=== PATIENT | male | born 1930 | race American Indian/Alaskan Native ===

== ENCOUNTER 2016-03-03 15:39 | Inpatient (IN) | payer MEDICARE ==
--- NOTE | 2016-03-03 16:42 | Emergency Department Report ---
Chief Complaint: Dyspnea/Respdistress Stated Complaint: SOB/DIZZINESS Time Seen by Provider: 03/03/16 16:38 - HPI History of Present Illness: Patient here reports shortness of breath and dizziness. He is here with his daughter reports patient was recently started on home O2 for COPD and congestive heart failure. Patient also has a history of coronary artery disease with angioplasty and stent placement. 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 Patient has a history of CVA in the past. Daughter reported that his heart is prompted a 20% . Patient complaining of increased short of breath and generalized weakness. Reports chest pain on the left side without radiation that feels similar in its 9 out of 10. Cord Maker is Dr. Lyn. Report that patient potassium level was low on 2 occasion and she is also low back to impact retail service merchandiser tomorrow for repeat potassium. Patient is on potassium. - ROS Review of Systems: All systems are negative unless stated in HPI above. - Exam Vital Signs: Vital Signs 03/03/16 16:03 Temperature 97.9 F Pulse Rate 66 Respiratory 28 H Rate Blood Pressure 149/67 O2 Sat by Pulse 95 Oximetry Physical Exam: General: This is a 85-year-old male well-nourished well-developed and nontoxic in appearance. CV: S1, S2. Regular rate and rhythm. Lungs: Diminished air entry to lung [place]. Patient on O2 at 2 L. mild Increased work of breathing. Patient is tachypneic at 28 Extremity: Trace swelling to legs and feet. MSE screening note: Focused history and physical exam performed. Due to findings the following was ordered:see [facility] ED Medical Decision Making - Medical Decision Making Medical decision making: Patient seen by provider in triage area. Appropriate protocol activated and patient to main ED to be seen by physician. ED Disposition for MSE Condition: Stable
--- NOTE | 2016-03-03 17:12 | XRay Report ---
FINAL REPORT PROCEDURE: XR CHEST ROUTINE 2V TECHNIQUE: Two views of the chest are obtained HISTORY: cp sob COMPARISON: Chest x-ray dated December 23, 2014 FINDINGS: Likely changes of COPD are present. Probable CHF is seen, similar to prior study. CP angles remain sharp but there may be a small amount of fluid in the pulmonary fissures. No suggestion of pneumonia is seen. IMPRESSION: Likely changes of CHF and COPD are present.
[2016-03-03 17:31] LABS: Basophils % (Auto) 0.6 % (0.0-1.8); Eosinophils % (Auto) 2.2 % (0.0-4.3); Hematocrit 38.4 % (35.5-45.6); Hemoglobin 12.6 gm/dl (11.8-15.2); Mean Corpuscular HGB Conc 33 % (32-34); Mean Corpuscular Hemoglobin 31 pg (28-32); Mean Corpuscular Volume 96 fl (84-94); Platelet Count 200 K/mm3 (140-440); Red Blood Count 4.01 M/mm3 (3.65-5.03); Red Cell Distribution Width 15.2 % (13.2-15.2); White Blood Count 5.5 K/mm3 (4.5-11.0)
[2016-03-03 17:39] LABS: INR 1.16 (0.87-1.13)
[2016-03-03 17:40] LABS: Partial Thromboplastin Time 31.9 Sec. (24.2-36.6)
[2016-03-03 17:56] LABS: Blood Urea Nitrogen 13 mg/dL (9-20); Calcium 8.4 mg/dL (8.4-10.2); Carbon Dioxide 23 mmol/L (22-30); Chloride 102.8 mmol/L (98-107); Creatine Kinase MB 1.3 ng/mL (0.0-4.0); Glucose 120 mg/dL (75-100); Potassium 3.4 mmol/L (3.6-5.0); Sodium 139 mmol/L (137-145)
[2016-03-03 18:00] LABS: Magnesium 1.8 mg/dL (1.7-2.3)
[2016-03-03 18:13] LABS: Anion Gap 17 mmol/L
--- NOTE | 2016-03-03 22:52 | Admit Criteria Form ---
Admission Criteria Documentation: HEART FAILURE: COMMON COMPLICATIONS Clinical Indications for Inpatient Care (Place 'X' for any and all applicable criteria): Ongoing inpatient care may be indicated for heart failure with ANY ONE of the following (1)(2)(3)(4)(5): [ ]I. Ongoing need for care for primary condition requiring frequent therapy adjustments because of changes in cardiac function (eg, drug dosage changes for drugs that are renally metabolized) [ ]II. New-onset heart failure [ ]III. Heart failure with decreased urine output not responsive to attempts to optimize volume status [ ]IV. Acute cardiac ischemia causing or associated with failure [ X]V. Complications of heart failure, including ANY ONE of the following: [ ]a) Pericardial effusion [ ]b) Symptomatic pleural effusion [ ]c) O2 saturation <90% or PO2 < 60 mm Hg (8.0 kPa) on room air or require baseline supplemental O2 [ ]d) Tachypnea [ X]e) Dyspnea [ ]f) Syncope [ ]g) Change in mental status [ ]h) Acute renal insufficiency that is severe (reduction of more than 50% in estimated glomerular filtration rate from baseline) or progressive reduction of more than 25% in estimated glomerular filtration rate from baseline, with creatinine continuing to rise) [ ]i) Hemodynamic instability [ ]j) Anasarca [ ]k) Clinically significant metabolic abnormalities due to heart failure (eg, new-onset metabolic acidosis) Extended stay beyond goal length of stay for primary condition may be needed until ALL of the following are present(1)(3): [ ]a) Stable and effective diuretic regimen established (or patient on stable dialysis regimen if in chronic renal failure) [ ]b) Breathing comfortably at rest [ ]c) Saturation of arterial oxygen greater than 90% or at acceptable baseline [ ]d) Pulmonary edema absent or improved [ ]e) Hemodynamic stability [ ]f) Volume status acceptable on oral medication [ ]g) Peripheral or sacral edema absent or improved [ ]h) Renal function stable and manageable at a lower level of care [ ]i) Complications (eg, pleural effusion) resolved or manageable at a lower level of care [ ]j) Patient or caregiver has received written discharge instructions or educational material addressing activity level, diet, discharge medications, follow-up appointment, weight monitoring, and what to do if symptoms worsen The original [facility] content created by [employer] has been revised. The portions of the content which have been revised are identified through the use of italic text or in bold, and [facility] has neither reviewed nor approved the modified material.All other unmodified content is copyright [facility]. Please see references footnoted in the original [facility] edition 2016 Admission Criteria Met: Yes
--- NOTE | 2016-03-03 23:05 | Emergency Department Report ---
ED Shortness of Breath HPI - General Chief Complaint: Dyspnea/Respdistress Stated Complaint: SOB/DIZZINESS Time Seen by Provider: 03/03/16 16:38 Source: patient, family Mode of arrival: Wheelchair Limitations: Physical Limitation - History of Present Illness Initial Comments: 85-year-old male with a past medical history COPD with oxygen dependence, CHF, CAD with for stent placement, hypertension, and other than a cholesterol, and CVA with residual right-sided weakness presents to the hospital complains of numbness of breath and lightheadedness for the past 2-3 weeks. Symptoms worse with exertion. Occasional shortness of breath while sleeping. Denies cough, fever, or worsening edema. She uses home oxygen and recently required continuous oxygen treatment due to shortness of breath. Left-sided chest soreness reported that is constant for 2-3 weeks. Rated 9/10 in intensity. Worse with palpation. No pain with deep inspiration. No nausea, vomiting, or diaphoresis reported. Patient had outpatient stress test performed February 20 he does not know the results. Patient also receiving potassium supplementation for hypokalemia. Application Support Intern: Dr. Lyn, PND, Dr. 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 Patient is currently in home hospice - Related Data Home Medications Medication Instructions Recorded Confirmed Last Taken Aspirin [Adult Low Dose Aspirin EC] 81 mg PO DAILY 10/18/15 03/03/16 1 Day Ago 81 Atorvastatin Calcium [Lipitor] 20 mg PO QHS 10/18/15 03/03/16 1 Day Ago 20 Clopidogrel Bisulfate [Plavix] 75 mg PO DAILY 10/18/15 03/03/16 1 Day Ago 75 Furosemide [Lasix TAB] 40 mg PO QDAY 10/18/15 03/03/16 1 Day Ago 40 Hydralazine HCl [Apresoline TAB] 50 mg PO TID 10/18/15 03/03/16 1 Day Ago 50 ISOSORBIDE MONOnitrate [Imdur ER] 30 mg PO DAILY 10/18/15 03/03/16 1 Day Ago 30 Metoprolol [Lopressor TAB] 50 mg PO BID 10/18/15 03/03/16 1 Day Ago 50 Sacubitril/Valsartan [Entresto 97 1 each PO BID 10/18/15 03/03/16 1 Day Ago mg-103 mg Tablet] 1 Spironolactone [Aldactone] 25 mg PO QDAY 10/18/15 03/03/16 1 Day Ago 25 Tamsulosin [Flomax] 0.4 mg PO QHS 10/18/15 03/03/16 1 Day Ago 0.4 Allergies Allergy/AdvReac Type Severity Reaction Status Date / Time No Known Allergies Allergy Verified 12/23/14 18:25 ED Review of Systems ROS: Stated complaint: SOB/DIZZINESS Other details as noted in HPI Comment: All other systems reviewed and negative Other: Constitutional: No fevers chills Eyes: No eye pain visual changes ENT: No ear pain or throat pain Neck: Denies pain Respiratory: Denies cough wheezing Cardiovascular: Denies palpitations, syncope GI: Denies abdominal pain, nausea, vomiting, diarrhea : Denies dysuria Musculoskeletal: Trace lower extremity edema Skin: Denies rash, lesions, erythema Neurologic: Denies headache, numbness, weakness Psychiatric: Denies suicidal ideation, hallucinations ED Past Medical Hx - Past Medical History Previous Medical History?: Yes Hx Hypertension: Yes Hx CVA: Yes Hx Congestive Heart Failure: Yes Hx Renal Disease: Yes Hx Arthritis: Yes Hx COPD: Yes Additional medical history: CAD. HIGH CHOLESTEROL. GLAUCOMA - Surgical History Past Surgical History?: Yes Hx Coronary Stent: Yes (X 4) Additional Surgical History: BILATERAL CATARACT SURGERY - Social History Smoking Status: Former Smoker Substance Use Type: Prescribed, Other - Medications Home Medications: Home Medications Medication Instructions Recorded Confirmed Last Taken Type Aspirin [Adult Low Dose Aspirin EC] 81 mg PO DAILY 10/18/15 03/03/16 1 Day Ago History 81 Atorvastatin Calcium [Lipitor] 20 mg PO QHS 10/18/15 03/03/16 1 Day Ago History 20 Clopidogrel Bisulfate [Plavix] 75 mg PO DAILY 10/18/15 03/03/16 1 Day Ago History 75 Furosemide [Lasix TAB] 40 mg PO QDAY 10/18/15 03/03/16 1 Day Ago History 40 Hydralazine HCl [Apresoline TAB] 50 mg PO TID 10/18/15 03/03/16 1 Day Ago History 50 ISOSORBIDE MONOnitrate [Imdur ER] 30 mg PO DAILY 10/18/15 03/03/16 1 Day Ago History 30 Metoprolol [Lopressor TAB] 50 mg PO BID 10/18/15 03/03/16 1 Day Ago History 50 Sacubitril/Valsartan [Entresto 97 1 each PO BID 10/18/15 03/03/16 1 Day Ago History mg-103 mg Tablet] 1 Spironolactone [Aldactone] 25 mg PO QDAY 10/18/15 03/03/16 1 Day Ago History 25 Tamsulosin [Flomax] 0.4 mg PO QHS 10/18/15 03/03/16 1 Day Ago History 0.4 ED Physical Exam - General Limitations: Physical Limitation - Other Other exam information: General: No limitations, patient is alert in no acute distress Head exam: Atraumatic, normocephalic Eyes exam: Normal appearance, pupils equal reactive to light, extraocular movements intact ENT: Moist mucous membrane, normal oropharynx Neck exam: Normal inspection, full range of motion, no meningismus nontender Respiratory exam: Clear to auscultation bilateral, no wheezes, rales, crackles Cardiovascular: Normal rate and rhythm, normal heart sounds, reproducible left chest wall tenderness Abdomen: Soft, nondistended, and nontender, with normal bowel sounds, no rebound, or guarding Extremity: Full range of motion normal inspection no deformity, trace pedal edema Back: Normal Inspection, full range of motion, no tenderness Neurologic: Alert, oriented x3, cranial nerves intact, 4/5 right sided strength compared to the left 5/5, sensation grossly intact Psychiatric: normal affect, normal mood Skin: Warm, dry, intact ED Course Vital Signs 03/03/16 03/03/16 03/03/16 16:03 22:47 22:48 Temperature 97.9 F Pulse Rate 66 65 Respiratory 28 H 21 21 Rate Blood Pressure 149/67 Blood Pressure 206/98 [Left] O2 Sat by Pulse 95 98 98 Oximetry 03/04/16 03/04/16 03/04/16 00:15 01:25 02:38 Temperature Pulse Rate 60 62 61 Respiratory 18 16 Rate Blood Pressure 182/81 Blood Pressure 192/87 173/86 [Left] O2 Sat by Pulse 98 99 Oximetry 03/04/16 03/04/16 04:00 06:38 Temperature Pulse Rate 61 60 Respiratory 18 20 Rate Blood Pressure Blood Pressure 174/75 168/87 [Left] O2 Sat by Pulse 99 97 Oximetry ED Medical Decision Making - Lab Data Result diagrams: 03/03/16 17:08 03/04/16 00:55 Lab Results 03/03/16 03/03/16 03/03/16 Range/Units 17:08 17:08 17:08 WBC 5.5 (4.5-11.0) K/mm3 RBC 4.01 (3.65-5.03) M/mm3 Hgb 12.6 (11.8-15.2) gm/dl Hct 38.4 (35.5-45.6) % MCV 96 H (84-94) fl MCH 31 (28-32) pg MCHC 33 (32-34) % RDW 15.2 (13.2-15.2) % Plt Count 200 (140-440) K/mm3 Lymph % (Auto) 30.0 (13.4-35.0) % Leslie % (Auto) 10.1 H (0.0-7.3) % Eos % (Auto) 2.2 (0.0-4.3) % Baso % (Auto) 0.6 (0.0-1.8) % Lymph # 1.7 (1.2-5.4) K/mm3 Leslie # 0.6 (0.0-0.8) K/mm3 Eos # 0.1 (0.0-0.4) K/mm3 Baso # 0.0 (0.0-0.1) K/mm3 Seg Neutrophils % 57.1 (40.0-70.0) % Seg Neutrophils # 3.2 (1.8-7.7) K/mm3 PT 14.7 (12.2-14.9) Sec. INR 1.16 H (0.87-1.13) APTT 31.9 (24.2-36.6) Sec. Sodium 139 (137-145) mmol/L Potassium 3.4 L (3.6-5.0) mmol/L Chloride 102.8 (98-107) mmol/L Carbon Dioxide 23 (22-30) mmol/L Anion Gap 17 mmol/L BUN 13 (9-20) mg/dL Creatinine 1.0 (0.8-1.5) mg/dL Estimated GFR > 60 ml/min BUN/Creatinine Ratio 13.00 % Glucose 120 H (75-100) mg/dL Calcium 8.4 (8.4-10.2) mg/dL Magnesium (1.7-2.3) mg/dL Total Creatine Kinase (55-170) units/L CK-MB (CK-2) (0.0-4.0) ng/mL CK-MB (CK-2) Rel Index (0-4) Troponin T < 0.010 (0.00-0.029) ng/mL 03/03/16 03/03/16 Range/Units 17:08 19:23 WBC (4.5-11.0) K/mm3 RBC (3.65-5.03) M/mm3 Hgb (11.8-15.2) gm/dl Hct (35.5-45.6) % MCV (84-94) fl MCH (28-32) pg MCHC (32-34) % RDW (13.2-15.2) % Plt Count (140-440) K/mm3 Lymph % (Auto) (13.4-35.0) % Leslie % (Auto) (0.0-7.3) % Eos % (Auto) (0.0-4.3) % Baso % (Auto) (0.0-1.8) % Lymph # (1.2-5.4) K/mm3 Leslie # (0.0-0.8) K/mm3 Eos # (0.0-0.4) K/mm3 Baso # (0.0-0.1) K/mm3 Seg Neutrophils % (40.0-70.0) % Seg Neutrophils # (1.8-7.7) K/mm3 PT (12.2-14.9) Sec. INR (0.87-1.13) APTT (24.2-36.6) Sec. Sodium (137-145) mmol/L Potassium (3.6-5.0) mmol/L Chloride (98-107) mmol/L Carbon Dioxide (22-30) mmol/L Anion Gap mmol/L BUN (9-20) mg/dL Creatinine (0.8-1.5) mg/dL Estimated GFR ml/min BUN/Creatinine Ratio % Glucose (75-100) mg/dL Calcium (8.4-10.2) mg/dL Magnesium 1.8 (1.7-2.3) mg/dL Total Creatine Kinase 97 (55-170) units/L CK-MB (CK-2) 1.3 (0.0-4.0) ng/mL CK-MB (CK-2) Rel Index 1.3 (0-4) Troponin T < 0.010 (0.00-0.029) ng/mL - EKG Data -: EKG Interpreted by Me (sinus rhythm first-degree AV block lateral T wave inversion) - EKG Data When compared to previous EKG there are: no significant change (new first degree block compared to 10/19/2015) - Radiology Data Radiology results: report reviewed (chest x-ray: Likely changes of CHF and COPD) - Medical Decision Making Plan to admit patient to hospital for further evaluation and workup due to dyspnea symptoms and significant cardiac history. No STEMI at this time - Differential Diagnosis COPD, CHF, IA, unstable angina, it was chest Critical Care Time: No Critical care attestation.: If time is entered above; I have spent that time in minutes in the direct care of this critically ill patient, excluding procedure time. ED Disposition Clinical Impression: Shortness of breath, Uncontrolled hypertension, Hypokalemia, CVA, old, hemiparesis COPD (chronic obstructive pulmonary disease) Qualifiers: COPD type: unspecified COPD Qualified Code(s): J44.9 - Chronic obstructive pulmonary disease, unspecified Hypertension Qualifiers: Hypertension type: essential hypertension Qualified Code(s): I10 - Essential ( primary) hypertension CHF (congestive heart failure) Qualifiers: Congestive heart failure type: unspecified congestive heart failure type Congestive heart failure chronicity: chronic Qualified Code(s): I50.9 - Heart failure, unspecified Chest pain Qualifiers: Chest pain type: unspecified Qualified Code(s): R07.9 - Chest pain, unspecified Disposition: OP ADMITTED IP TO THIS HOSP Is pt being admited?: Yes Condition: Stable Time of Disposition: 23:10 ([place])
[2016-03-03] MEDS ORDERED: K-DUR PO ONE (23:08)
[2016-03-04] MEDS ORDERED: NON-FORMULARY (Sacubitril/Valsartan [Entresto 97 Mg-103 Mg Tablet] 1 EACH) PO SCH (00:45)
[2016-03-04] MEDS ORDERED: LOPRESSOR ONE (01:21)
[2016-03-04] MEDS: LOPRESSOR PO SCH ×3 (01:25→22:30)
[2016-03-04 01:30] LABS: Creatine Kinase MB 1.4 ng/mL (0.0-4.0)
[2016-03-04 01:31] LABS: Alanine Aminotransferase 8 units/L (7-56); Albumin 3.6 g/dL (3.9-5); Albumin/Globulin Ratio 1.1 %; Alkaline Phosphatase 61 units/L (35-129); BUN/Creatinine Ratio 13.33; Bilirubin,Total 0.7 mg/dL (0.1-1.2); Blood Urea Nitrogen 12 mg/dL (9-20); Calcium 8.4 mg/dL (8.4-10.2); Carbon Dioxide 24 mmol/L (22-30); Chloride 100.8 mmol/L (98-107); Creatine Kinase 91 units/L (55-170); Glucose 99 mg/dL (75-100); Potassium 3.5 mmol/L (3.6-5.0); Sodium 139 mmol/L (137-145); Total Protein 6.9 g/dL (6.3-8.2)
--- NOTE | 2016-03-04 01:32 | History and Physical Report ---
History of Present Illness Date of examination: 03/04/16 Date of admission: 03/04/16 00:34 Chief complaint: Shortness of breath History of present illness: Patient is a 85-year-old male with a history of COPD, depression, dementia, with the resident also a custodial facility. Started complaining of left- sided chest pain. CT a history of the chest was done. This was remarkable for a 50%. Pneumothorax. Therefore brought emergency department. Emergency room doctor placed a chest tube. Post insertion xray was satisfactory. Past History Past Medical History: acute [place], heart failure, hyperthyroidism, hyperlipidemia Social history: denies: smoking, alcohol abuse, IV drug use Family history: no significant family history Medications and Allergies Allergies Allergy/AdvReac Type Severity Reaction Status Date / Time No Known Allergies Allergy Verified 12/23/14 18:25 Home Medications Medication Instructions Recorded Confirmed Last Taken Type Aspirin [Adult Low Dose Aspirin EC] 81 mg PO DAILY 10/18/15 03/03/16 1 Day Ago History 81 Atorvastatin Calcium [Lipitor] 20 mg PO QHS 10/18/15 03/03/16 1 Day Ago History 20 Clopidogrel Bisulfate [Plavix] 75 mg PO DAILY 10/18/15 03/03/16 1 Day Ago History 75 Furosemide [Lasix TAB] 40 mg PO QDAY 10/18/15 03/03/16 1 Day Ago History 40 Hydralazine HCl [Apresoline TAB] 50 mg PO TID 10/18/15 03/03/16 1 Day Ago History 50 ISOSORBIDE MONOnitrate [Imdur ER] 30 mg PO DAILY 10/18/15 03/03/16 1 Day Ago History 30 Metoprolol [Lopressor TAB] 50 mg PO BID 10/18/15 03/03/16 1 Day Ago History 50 Sacubitril/Valsartan [Entresto 97 1 each PO BID 10/18/15 03/03/16 1 Day Ago History mg-103 mg Tablet] 1 Spironolactone [Aldactone] 25 mg PO QDAY 10/18/15 03/03/16 1 Day Ago History 25 Tamsulosin [Flomax] 0.4 mg PO QHS 10/18/15 03/03/16 1 Day Ago History 0.4 Active Meds: Active Medications Aspirin (Halfprin Ec) 81 mg PO DAILY ROBI Atorvastatin Calcium (Lipitor) 20 mg PO QHS [facility] [place] Clopidogrel Bisulfate (Plavix) 75 mg PO DAILY [facility] Enoxaparin Sodium (Lovenox) 40 mg SUB-Q QDAY [facility] [place] Furosemide (Lasix) 20 mg IV QDAY [facility] [place] Hydralazine HCl (Apresoline) 50 mg PO TID [facility] Isosorbide Mononitrate (Imdur) 30 mg PO DAILY [facility] Metoprolol Tartrate (Lopressor) 50 mg PO BID [facility] Last Admin: 03/04/16 01:25 Dose: 50 mg Miscellaneous Medication (Sacubitril/Valsartan [Entresto 97 Mg-103 Mg Tablet]) 1 each PO BID [facility] [place] Spironolactone (Aldactone) 25 mg PO QDAY [facility] [place] Tamsulosin HCl (Flomax) 0.4 mg PO QHS [facility] Review of Systems Constitutional: no weight loss, no weight gain Ears, nose, mouth and throat: decreased hearing, no ear pain, no ear discharge, no tinnitis Cardiovascular: chest pain (right-sided) Respiratory: cough, cough with sputum, excessive sputum, hemoptysis Gastrointestinal: abdominal pain, nausea, vomiting, diarrhea Genitourinary Male: dysuria, no hematuria, no discharge Exam - Constitutional Vitals: Temp Pulse Resp BP Pulse Ox 97.9 F 62 18 182/81 98 03/03/16 16:03 03/04/16 01:25 03/04/16 00:15 03/04/16 01:25 03/04/16 00:15 General appearance: Present: mild distress - EENT Eyes: Present: PERRL - Neck Neck: Present: supple, enlarged thyroid - Respiratory Respiratory: bilateral: diminished - Cardiovascular Rhythm: regular Heart Sounds: Present: S1 & S2 - Extremities Extremities: no ischemia, No edema - Abdominal General gastrointestinal: Present: soft, non-tender, non-distended - Integumentary Integumentary: Present: clear, warm, dry, jaundice - Musculoskeletal Musculoskeletal: strength equal bilaterally - Psychiatric Psychiatric: appropriate mood/affect - Neurologic Neurologic: focal deficits Results - Labs CBC & Chem 7: 03/03/16 17:08 03/05/16 00:58 Assessment and Plan - Patient Problems (1) COPD (chronic obstructive pulmonary disease) Diagnosis Date: 03/04/16 Current Visit: Yes Status: Chronic Qualifiers: COPD type: unspecified COPD Qualified Code(s): J44.9 - Chronic obstructive pulmonary disease, unspecified Plan to address problem: Continue albuterol and Atrovent. IV Solu-Medrol. IV Levaquin. (2) Hypokalemia Diagnosis Date: 03/04/16 Current Visit: Yes Status: Acute Plan to address problem: We'll supplement potassium (3) Shortness of breath Diagnosis Date: 03/04/16 Current Visit: Yes Status: Acute Plan to address problem: Continue with bronchodilators, oxygen, IV Solu-Medrol (4) Hypertension Diagnosis Date: 03/04/16 Current Visit: Yes Status: Chronic Qualifiers: Hypertension type: essential hypertension Qualified Code(s): I10 - Essential (primary) hypertension Plan to address problem: Optimize control
[2016-03-04 01:36] LABS: Anion Gap 18 mmol/L
[2016-03-04] MEDS ORDERED: NON-FORMULARY (Hydralazine Hcl [Apresoline Tab] 50 MG) PO SCH (08:00)
--- NOTE | 2016-03-04 09:24 | Consultation ---
History of Present Illness Consult date: 03/04/16 Requesting physician: KELVIN SOLORZANO Consult reason: congestive heart failure History of present illness: The patient is an 85 year old male with a history of heart failure, CAD s/p PCI , COPD on home O2, CVA who presented with complaints of worsening shortness of breath and dyspnea on exertion over the past several weeks. No chest pain. Troponin negative x 2. Echo done 04/2014 showed EF 35% but MUGA scan done 2015 showed EF 49%. Stress test done 12/2014 reveled a medium sized inferior infarct with mild heydi-infarct ischemia. Past History Past Medical History: CAD, COPD, heart failure, hyperthyroidism, hypertension, hyperlipidemia, stroke, other (glaucoma) Past Surgical History: cataract removal, PTCA Social history: denies: smoking, alcohol abuse, IV drug use Family history: no significant family history Medications and Allergies Allergies Allergy/AdvReac Type Severity Reaction Status Date / Time No Known Allergies Allergy Verified 12/23/14 18:25 Home Medications Medication Instructions Recorded Confirmed Last Taken Type Aspirin [Adult Low Dose Aspirin EC] 81 mg PO DAILY 10/18/15 03/03/16 1 Day Ago History 81 Atorvastatin Calcium [Lipitor] 20 mg PO QHS 10/18/15 03/03/16 1 Day Ago History 20 Clopidogrel Bisulfate [Plavix] 75 mg PO DAILY 10/18/15 03/03/16 1 Day Ago History 75 Furosemide [Lasix TAB] 40 mg PO QDAY 10/18/15 03/03/16 1 Day Ago History 40 Hydralazine HCl [Apresoline TAB] 50 mg PO TID 10/18/15 03/03/16 1 Day Ago History 50 ISOSORBIDE MONOnitrate [Imdur ER] 30 mg PO DAILY 10/18/15 03/03/16 1 Day Ago History 30 Metoprolol [Lopressor TAB] 50 mg PO BID 10/18/15 03/03/16 1 Day Ago History 50 Sacubitril/Valsartan [Entresto 97 1 each PO BID 10/18/15 03/03/16 1 Day Ago History mg-103 mg Tablet] 1 Spironolactone [Aldactone] 25 mg PO QDAY 10/18/15 03/03/16 1 Day Ago History 25 Tamsulosin [Flomax] 0.4 mg PO QHS 10/18/15 03/03/16 1 Day Ago History 0.4 Active Meds: Active Medications Aspirin (Halfprin Ec) 81 mg PO DAILY [facility] Atorvastatin Calcium (Lipitor) 20 mg PO QHS [facility] Clopidogrel Bisulfate (Plavix) 75 mg PO DAILY [facility] Enoxaparin Sodium (Lovenox) 40 mg SUB-Q QDAY [facility] Furosemide (Lasix) 20 mg IV QDAY [facility] Hydralazine HCl (Apresoline) 50 mg PO TID [facility] Isosorbide Mononitrate (Imdur) 30 mg PO DAILY [facility] Metoprolol Tartrate (Lopressor) 50 mg PO BID [facility] Last Admin: 03/04/16 01:25 Dose: 50 mg Miscellaneous Medication (Sacubitril/Valsartan [Entresto 97 Mg-103 Mg Tablet]) 1 each PO BID [facility] Spironolactone (Aldactone) 25 mg PO QDAY [facility] Tamsulosin HCl (Flomax) 0.4 mg PO QHS [facility] Review of Systems Constitutional: no fever, no chills Ears, nose, mouth and throat: no nasal congestion, no nasal discharge, no sinus pressure Cardiovascular: shortness of breath, dyspnea on exertion, no chest pain Respiratory: shortness of breath, dyspnea on exertion Gastrointestinal: no abdominal pain, no nausea, no vomiting, no diarrhea Genitourinary Male: no dysuria, no hematuria Musculoskeletal: no neck stiffness, no neck pain, no myalgias Integumentary: no rash, no pruritis Neurological: no parathesias, no numbness, no tingling, no headaches Endocrine: no cold intolerance, no heat intolerance Hematologic/Lymphatic: no easy bruising, no easy bleeding Allergic/Immunologic: no urticaria, no wheezing Physical Examination Vital Signs Temp Pulse Resp BP Pulse Ox 97.9 F 66 28 H 149/67 95 03/03/16 16:03 03/03/16 16:03 03/03/16 16:03 03/03/16 16:03 03/03/16 16:03 General appearance: no acute distress HEENT: Positive: Normocephaly, Mucus Membranes Moist Neck: Positive: neck supple, trachea midline Cardiac: Positive: Reg Rate and Rhythm, S1/S2 Lungs: Positive: clear to auscultation Neuro: Positive: Other (right hemiparesis) Abdomen: Positive: Soft, Active Bowel Sounds. Negative: Tender Skin: Positive: Clear. Negative: Rash Extremities: Present: normal. Absent: edema Results 03/03/16 17:08 03/04/16 00:55 Cardiac Enzymes 03/04/16 Range/Units 00:55 AST 14 (5-40) units/L CK-MB (CK-2) 1.4 (0.0-4.0) ng/mL Comprehensive Metabolic Panel 03/04/16 Range/Units 00:55 Sodium 139 (137-145) mmol/L Potassium 3.5 L (3.6-5.0) mmol/L Chloride 100.8 (98-107) mmol/L Carbon Dioxide 24 (22-30) mmol/L BUN 12 (9-20) mg/dL Creatinine 0.9 (0.8-1.5) mg/dL Glucose 99 (75-100) mg/dL Calcium 8.4 (8.4-10.2) mg/dL AST 14 (5-40) units/L ALT 8 (7-56) units/L Alkaline Phosphatase 61 (35-129) units/L Total Protein 6.9 (6.3-8.2) g/dL Albumin 3.6 L (3.9-5) g/dL - Imaging and Cardiology Echo: pending EKG: image reviewed EKG interpretations - Telemetry EKG Rhythm: Sinus Rhythm - EKG Sinus rhythms and dysrhythmias: sinus rhythm AV and intraventricular conduction: 1 AV block Repolarization changes or abnormalities: ST or T wave suggestive of ischemia Assessment and Plan Acute on chronic diastolic heart failure MUGA scan 01/2016: EF 49% Echo 04/2014: EF 35%, will repeat continue lasix, aldactone, metoprolol, valsartan, Imdur, hydralazine Accelerated hypertension optimize anti-hypertensive regimen CAD s/p PCI of RCA and LCX (04/2014) continue ASA, Plavix, statin COPD on O2 Hyperlipidemia Hx. of CVA Agree with current regimen. Await repeat echo findings. The patient has been seen in conjunction with Dr. Meyers who agrees with the assessment and plan of care. Thank you Dr. Solorzano for allowing us to participate in the care of this patient.
[2016-03-04] MEDS ORDERED: IMDUR PO SCH (10:00)
[2016-03-04] MEDS: DIOVAN PO SCH (10:26)
[2016-03-04] MEDS: ALDACTONE PO SCH (10:26)
[2016-03-04] MEDS: PLAVIX PO SCH (10:26)
[2016-03-04] MEDS: HALFPRIN EC PO SCH (10:26)
[2016-03-04] MEDS: LASIX IV SCH (10:27)
[2016-03-04] MEDS: LOVENOX SUB-Q SCH (10:27)
[2016-03-04] MEDS: APRESOLINE PO SCH ×3 (10:31→22:30)
[2016-03-04 12:13] LABS: Creatine Kinase MB 1.4 ng/mL (0.0-4.0)
[2016-03-04 14:36] LABS: Creatine Kinase MB 1.5 ng/mL (0.0-4.0)
[2016-03-04 22:20] LABS: Creatine Kinase MB 1.3 ng/mL (0.0-4.0)
[2016-03-04] MEDS: FLOMAX PO SCH (22:30)
--- NOTE | 2016-03-04 23:44 | Progress Note ---
Assessment and Plan - Patient Problems (1) COPD (chronic obstructive pulmonary disease) Diagnosis Date: 03/04/16 Current Visit: Yes Status: Chronic Qualifiers: COPD type: unspecified COPD Qualified Code(s): J44.9 - Chronic obstructive pulmonary disease, unspecified Plan to address problem: Continue albuterol and Atrovent. IV Solu-Medrol. IV Levaquin. (2) Hypokalemia Diagnosis Date: 03/04/16 Current Visit: Yes Status: Acute Plan to address problem: Supplement potassium level. (3) Shortness of breath Diagnosis Date: 03/04/16 Current Visit: Yes Status: Acute Plan to address problem: Continue with bronchodilators, oxygen, IV Solu-Medrol Secondary to terminal COPD (4) Hypertension Diagnosis Date: 03/04/16 Current Visit: Yes Status: Chronic Qualifiers: Hypertension type: essential hypertension Qualified Code(s): I10 - Essential (primary) hypertension Plan to address problem: Blood pressure optimized Further optimize blood pressure control with IV hydralazine. Subjective Date of service: 03/04/16 Principal diagnosis: COPD exacerbation Interval history: Still having shortness of breath. Objective - Constitutional Vitals: Vital Signs - 12hr 03/04/16 03/04/16 03/04/16 15:03 21:26 22:30 Temperature 98.2 F 98.5 F Pulse Rate 72 Pulse Rate [ 74 72 From Monitor] Respiratory 22 20 Rate Blood Pressure 190/92 Blood Pressure 167/77 190/92 [Right Arm] O2 Sat by Pulse 97 96 Oximetry General appearance: Present: no acute distress - EENT Eyes: PERRL - Neck Neck: supple - Respiratory Respiratory: bilateral: diminished, rhonchi - Cardiovascular Rhythm: regular Heart Sounds: Present: S1 & S2 Extremities: no ischemia, No edema - Gastrointestinal General gastrointestinal: Present: soft, non-tender, non-distended - Integumentary Integumentary: clear - Musculoskeletal Musculoskeletal: generalized weakness - Neurologic Neurologic: CNII-XII intact, moves all extremities - Psychiatric Psychiatric: appropriate mood/affect - Labs CBC & Chem 7: 03/03/16 17:08 03/04/16 00:55 Labs: Abnormal lab results 03/04/16 Range/Units 00:55 Potassium 3.5 L (3.6-5.0) mmol/L Albumin 3.6 L (3.9-5) g/dL
[2016-03-05] MEDS: APRESOLINE IV SCH ×5 (00:45→22:03)
[2016-03-05 01:49] LABS: Creatine Kinase MB 1.2 ng/mL (0.0-4.0)
[2016-03-05 01:51] LABS: Alanine Aminotransferase 7 units/L (7-56); Albumin 3.3 g/dL (3.9-5); Albumin/Globulin Ratio 1.1 %; Alkaline Phosphatase 56 units/L (35-129); BUN/Creatinine Ratio 13.63; Bilirubin,Total 0.8 mg/dL (0.1-1.2); Blood Urea Nitrogen 15 mg/dL (9-20); Calcium 8.2 mg/dL (8.4-10.2); Carbon Dioxide 25 mmol/L (22-30); Chloride 103.7 mmol/L (98-107); Creatine Kinase 74 units/L (55-170); Glucose 99 mg/dL (75-100); Potassium 3.7 mmol/L (3.6-5.0); Sodium 142 mmol/L (137-145); Total Protein 6.2 g/dL (6.3-8.2)
[2016-03-05 01:55] LABS: Anion Gap 17 mmol/L
[2016-03-05] MEDS: APRESOLINE PO SCH ×2 (09:00→22:06)
[2016-03-05] MEDS ORDERED: IMDUR PO SCH (10:00)
--- NOTE | 2016-03-05 10:13 | Progress Note ---
Assessment and Plan Acute on chronic diastolic heart failure MUGA scan 01/2016: EF 49% Echo 04/2014: EF 35%, will repeat will increase lasix to 40mg IV daily continue aldactone, metoprolol, valsartan, Imdur, hydralazine Accelerated hypertension optimize anti-hypertensive regimen CAD s/p PCI of RCA and LCX (04/2014) continue ASA, Plavix, statin COPD on O2 Hyperlipidemia Hx. of CVA Will increase lasix to 40mg IV daily. Continue close monitoring of blood pressure and volume status. Await repeat echo findings. The patient has been seen in conjunction with Dr. Rodriguez who agrees with the assessment and plan of care. Subjective Date of service: 03/05/16 Principal diagnosis: COPD exacerbation Interval history: The patient is resting in bed. He is breathing better today but states he is still not back to baseline. Sinus rhythm on the monitor. 6 beat run of NSVT noted overnight. Objective Last Vital Signs Temp 98.2 F 03/05/16 07:55 Pulse 72 03/05/16 07:55 Resp 22 03/05/16 07:55 BP 182/86 03/05/16 07:55 Pulse Ox 96 03/05/16 07:55 - Physical Examination General: No Apparent Distress HEENT: Positive: Normocephaly, Mucus Membranes Moist Neck: Positive: neck supple, trachea midline Cardiac: Positive: Reg Rate and Rhythm, S1/S2 Lungs: Positive: clear to auscultation Neuro: Positive: Other (right hemiparesis) Abdomen: Positive: Soft, Active Bowel Sounds. Negative: Tender Skin: Positive: Clear. Negative: Rash Extremities: Present: normal. Absent: edema - Labs and Meds Cardiac Enzymes 03/04/16 03/04/16 03/04/16 Range/Units 10:50 13:56 21:37 AST (5-40) units/L CK-MB (CK-2) 1.4 1.5 1.3 (0.0-4.0) ng/mL 03/05/16 Range/Units 00:58 AST 11 (5-40) units/L CK-MB (CK-2) 1.2 (0.0-4.0) ng/mL Comprehensive Metabolic Panel 03/05/16 Range/Units 00:58 Sodium 142 (137-145) mmol/L Potassium 3.7 (3.6-5.0) mmol/L Chloride 103.7 (98-107) mmol/L Carbon Dioxide 25 (22-30) mmol/L BUN 15 (9-20) mg/dL Creatinine 1.1 (0.8-1.5) mg/dL Glucose 99 (75-100) mg/dL Calcium 8.2 L (8.4-10.2) mg/dL AST 11 (5-40) units/L ALT 7 (7-56) units/L Alkaline Phosphatase 56 (35-129) units/L Total Protein 6.2 L (6.3-8.2) g/dL Albumin 3.3 L (3.9-5) g/dL - Imaging and Cardiology EKG: image reviewed Echo: pending - Telemetry EKG Rhythm: Sinus Rhythm - EKG Sinus rhythms and dysrhythmias: sinus rhythm AV and intraventricular conduction: 1 AV block Repolarization changes or abnormalities: ST or T wave suggestive of ischemia
--- NOTE | 2016-03-05 11:39 | Query- Dyspnea ---
Deasandra Garner Date:03/05/16 Endodontics Dentist/CDS:Tyson Shah Phone#: Exercise your independent professional judgment when responding to query. Questions asked do not imply a particular answer is desired or expected. We greatly appreciate your clarification on this issue. Clinical Documentation States: 85 y/o m admitted 03/04/16 for CHF exacerbation 2/2 SOB/dyspnea. Patient has PMH for COPD, end stage on home O2. Described having worsening SOB over last several weeks. Patient recently placed upon continuous oxygen and currently under hospice care. Clinical Findings Show: [x] RR:_22 Patient on 2L oxygen- Saturated 96% Please clarify if the patient had any of the following conditions based on the above clinical findings: [ ] Respiratory Failure [x ] Acute [ ] Acute on Chronic [ ] Chronic [ ] Respiratory failure due to trauma [ ] Acute Respiratory Distress Syndrome [ ] Other: [ ] Unable to determine [ ] Comment/Explanation: Present on Admission: [x ] Yes (Y) [ ] Clinically undeterminable (W) [ ] No (N) Please also document response in your Progress Notes and/or Discharge Summary and indicate if the condition was present on admission. RUBÉN
[2016-03-05] MEDS: DIOVAN PO SCH (11:55)
[2016-03-05] MEDS: LOVENOX SUB-Q SCH (12:10)
[2016-03-05] MEDS: ALDACTONE PO SCH (12:10)
[2016-03-05] MEDS: LOPRESSOR PO SCH ×2 (12:12→22:05)
[2016-03-05] MEDS: PLAVIX PO SCH (12:14)
[2016-03-05] MEDS: IMDUR PO SCH (12:14)
[2016-03-05] MEDS: HALFPRIN EC PO SCH (12:14)
[2016-03-05] MEDS: LASIX IV SCH (12:26)
--- NOTE | 2016-03-05 12:28 | Echocardiography Report ---
Transthoracic Echocardiogram Indication: HEART FAILURE BP: 182/86 HR: 80 Conclusions *Mild to moderate concentric left ventricular hypertrophy is observed. *The estimated ejection fraction is 40-45%. *The left atrium is mildly dilated. *Abnormal left ventricular diastolic filling is observed, consistent with impaired relaxation. *The right atrium is mildly dilated. *Mild aortic cusp sclerosis is present. *There is mild to moderate mitral regurgitation. *There is moderate tricuspid regurgitation. *The right ventricular systolic pressure is calculated at 68 mmHg. *The inferior vena cava appears normal in size. Findings Procedure Info: The study quality is good. Left Ventricle: The left ventricular chamber size is normal. Mild to moderate concentric left ventricular hypertrophy is observed. The estimated ejection fraction is 40-45%. Abnormal left ventricular diastolic filling is observed, consistent with impaired relaxation. Left Atrium: The left atrium is mildly dilated. Right Ventricle: The right ventricle wall thickness is mildly increased. The right ventricular cavity size is normal. Right Atrium: The right atrium is mildly dilated. Aortic Valve: The aortic valve is trileaflet. Systolic excursion of the aortic valve is normal. Mild aortic cusp sclerosis is present. There is no evidence of aortic regurgitation. There is no evidence of aortic stenosis. Mitral Valve: The mitral valve is not well visualized. There is mild to moderate mitral regurgitation. There is no evidence of mitral stenosis. Tricuspid Valve: The tricuspid valve is not well visualized. There is moderate tricuspid regurgitation. The tricuspid regurgitant jet is directed toward the septum. The right ventricular systolic pressure is calculated at 68 mmHg. There is no tricuspid stenosis. Pulmonic Valve: The pulmonic valve is not well visualized. There is mild pulmonic regurgitation. There is no pulmonic stenosis. Pericardium: There is no pericardial effusion. No pleural effusion is present. Pulmonary Artery: The main pulmonary artery is not well visualized. Venous: The inferior vena cava appears normal in size. There is a greater than 50% respiratory change in the inferior vena cava dimension. Measurements Chambers MM Name Value Normal Range IVSd (MM) 1.86 cm (0.6 - 1.1) LVPWd (MM) 1.38 cm (0.6 - 1.1) IVS:LVPW ratio 1.35 ratio - LVIDd (MM) 5.27 cm (3.7 - 5.6) LVIDs (MM) 4.23 cm (2 - 2.8) LV FS (Teichholz) (MM) 19.7 % - LV FS (cube) (MM) 19.7 % - EF Teichholz (MM) 40.4 % - Ao root diameter (MM) 3.4 cm (2 - 3.7) LA dimension (AP) MM 4.9 cm (1.9 - 4) LA:Ao ratio (MM) 1.44 ratio - AV cusp separation (MM) 2 cm (1.5 - 2.6) Chambers 2D Name Value Normal Range IVSd (2D) 1.49 cm (0.6 - 1.1) LVPWd 1.3 cm - LVPWd (2D) 1.25 cm (0.6 - 1.1) IVS:LVPW ratio (2D) 1.19 ratio - LVIDd 5.1 cm - LVIDs 3.96 cm - LVIDd (2D) 5.11 cm (3.7 - 5.6) LVIDs (2D) 3.96 cm (2 - 3.8) LV FS (Teichholz) (2D) 22.5 % - LV FS (cube) (2D) 22.5 % - LV EF (2D) 45 % - EF Teichholz (2D) 44.9 % - LA dimension 4.2 cm - Ao root diameter (2D) 3.1 cm (2 - 3.7) LA dimension (AP) 2D 4.2 cm (1.9 - 4) LA:Ao ratio (2D) 1.35 ratio - Volumes/Mass Name Value Normal Range LA ESV SP 4CH (MOD) 71 ml - LV EDV SP 4CH (MOD) 129 ml - LV ESV SP 4CH (MOD) 65 ml - EF SP 4CH (MOD) 50 % - Diastolic/Systolic Function Name Value Normal Range MV E-wave Vmax 1.1 m/sec - MV deceleration time 173 msec - MV A-wave Vmax 1.43 m/sec - MV E:A ratio 0.8 ratio - LV septal e' Vmax 0.04 m/sec - LV lateral e' Vmax 0.1 m/sec - LV E:e' septal ratio 26.3 ratio - LV E:e' lateral ratio 11.1 ratio - Aortic Valve Name Value Normal Range AV VTI 28 cm - AV mean gradient 4 mmHg - LVOT diameter 2.3 cm - LVOT VTI 18.9 cm - LVOT mean gradient 2 mmHg - SV LVOT 78 ml - JULIANN (continuity VTI) 2.8 cm2 - Mitral Valve Name Value Normal Range MR Vmax 6.61 m/sec - MR VTI 254 cm - MR PISA radius 0.7 cm - Tricuspid Valve Name Value Normal Range TR Vmax 3.88 m/sec - TR peak gradient 60 mmHg - RAP 8 mmHg - RVSP 68 mmHg - Pulmonic Valve/Qp:Qs Name Value Normal Range MD end-diastolic Vmax 1.85 m/sec -
[2016-03-05 20:03] LABS: Eosinophils % (Auto) 2.2 % (0.0-4.3); Hematocrit 35.4 % (35.5-45.6); Mean Corpuscular HGB Conc 34 % (32-34); Mean Corpuscular Hemoglobin 32 pg (28-32); Mean Corpuscular Volume 93 fl (84-94); Platelet Count 179 K/mm3 (140-440); Red Cell Distribution Width 15.4 % (13.2-15.2); White Blood Count 5.6 K/mm3 (4.5-11.0)
[2016-03-05] MEDS: FLOMAX PO SCH (22:07)
[2016-03-06] MEDS: APRESOLINE IV SCH ×2 (00:15→04:36)
[2016-03-06 01:12] LABS: Alanine Aminotransferase 6 units/L (7-56); Albumin 3.2 g/dL (3.9-5); Alkaline Phosphatase 57 units/L (35-129); BUN/Creatinine Ratio 14.44; Bilirubin,Total 0.7 mg/dL (0.1-1.2); Blood Urea Nitrogen 13 mg/dL (9-20); Calcium 8.2 mg/dL (8.4-10.2); Carbon Dioxide 24 mmol/L (22-30); Chloride 103.4 mmol/L (98-107); Glucose 107 mg/dL (75-100); Potassium 3.6 mmol/L (3.6-5.0); Sodium 140 mmol/L (137-145); Total Protein 6.4 g/dL (6.3-8.2)
[2016-03-06 01:14] LABS: Anion Gap 16 mmol/L
[2016-03-06] MEDS: APRESOLINE PO SCH ×2 (09:02→21:57)
[2016-03-06] MEDS: LASIX IV SCH (09:03)
[2016-03-06] MEDS: LOPRESSOR PO SCH ×2 (09:03→21:58)
[2016-03-06] MEDS: HALFPRIN EC PO SCH (09:04)
[2016-03-06] MEDS: DIOVAN PO SCH (09:04)
[2016-03-06] MEDS: IMDUR PO SCH (09:05)
[2016-03-06] MEDS: PLAVIX PO SCH (09:06)
[2016-03-06] MEDS: LOVENOX SUB-Q SCH (09:06)
[2016-03-06] MEDS: ULTRAM PO PRN (10:28)
[2016-03-06] MEDS: ALDACTONE PO SCH (10:29)
--- NOTE | 2016-03-06 11:06 | Progress Note ---
Assessment and Plan Acute on chronic diastolic heart failure MUGA scan 01/2016: EF 49% Echo 02/2016: EF 40-45% continue lasix, aldactone, metoprolol, Entresto, Imdur, hydralazine Accelerated hypertension optimize anti-hypertensive regimen CAD s/p PCI of RCA and LCX (04/2014) continue ASA, Plavix, statin COPD on O2 Hyperlipidemia Hx. of CVA Continue current management. Pt. encouraged to ambulate. Patient may be discharged from a cardiac standpoint. Follow up appointment with with Dr. Lyn in the [place] office on 03/25/16 at 9:30 am. The patient has been seen in conjunction with Dr. Lyn who agrees with the assessment and plan of care. Subjective Date of service: 03/06/16 Principal diagnosis: COPD exacerbation Interval history: The patient is resting in bed. He is breathing better today. He he complains of pain in his right foot which he feels is arthritis. Sinus rhythm on the monitor. Objective Last Vital Signs Temp 98.8 F 03/06/16 07:54 Pulse 88 03/06/16 07:54 Resp 20 03/06/16 07:54 BP 200/88 03/06/16 10:29 Pulse Ox 96 03/06/16 09:23 - Physical Examination General: No Apparent Distress HEENT: Positive: Normocephaly, Mucus Membranes Moist Neck: Positive: neck supple, trachea midline Cardiac: Positive: Reg Rate and Rhythm, S1/S2 Lungs: Positive: clear to auscultation Neuro: Positive: Other (right hemiparesis) Abdomen: Positive: Soft, Active Bowel Sounds. Negative: Tender Skin: Positive: Clear. Negative: Rash Extremities: Present: normal. Absent: edema - Labs and Meds Cardiac Enzymes 03/06/16 Range/Units 00:24 AST 13 (5-40) units/L CBC 03/05/16 Range/Units 19:47 WBC 5.6 (4.5-11.0) K/mm3 RBC 3.80 (3.65-5.03) M/mm3 Hgb 12.0 (11.8-15.2) gm/dl Hct 35.4 L (35.5-45.6) % Plt Count 179 (140-440) K/mm3 Lymph # 1.9 (1.2-5.4) K/mm3 [place] # 0.7 (0.0-0.8) K/mm3 Eos # 0.1 (0.0-0.4) K/mm3 Baso # 0.1 (0.0-0.1) K/mm3 Comprehensive Metabolic Panel 03/06/16 Range/Units 00:24 Sodium 140 (137-145) mmol/L Potassium 3.6 (3.6-5.0) mmol/L Chloride 103.4 (98-107) mmol/L Carbon Dioxide 24 (22-30) mmol/L BUN 13 (9-20) mg/dL Creatinine 0.9 (0.8-1.5) mg/dL Glucose 107 H (75-100) mg/dL Calcium 8.2 L (8.4-10.2) mg/dL AST 13 (5-40) units/L ALT 6 L (7-56) units/L Alkaline Phosphatase 57 (35-129) units/L Total Protein 6.4 (6.3-8.2) g/dL Albumin 3.2 L (3.9-5) g/dL - Imaging and Cardiology EKG: image reviewed Echo: report reviewed (02/2016: EF 40-45%, impaired relaxation, RVSP 68 mmHg, moderate TR) - Telemetry EKG Rhythm: Sinus Rhythm - EKG Sinus rhythms and dysrhythmias: sinus rhythm AV and intraventricular conduction: 1 AV block Repolarization changes or abnormalities: ST or T wave suggestive of ischemia
[2016-03-06 18:34] LABS: Basophils % (Auto) 0.4 % (0.0-1.8); Eosinophils % (Auto) 0.4 % (0.0-4.3); Hematocrit 37.4 % (35.5-45.6); Hemoglobin 12.5 gm/dl (11.8-15.2); Mean Corpuscular HGB Conc 34 % (32-34); Mean Corpuscular Hemoglobin 32 pg (28-32); Mean Corpuscular Volume 94 fl (84-94); Platelet Count 196 K/mm3 (140-440); Red Blood Count 3.96 M/mm3 (3.65-5.03); Red Cell Distribution Width 14.8 % (13.2-15.2); White Blood Count 9.6 K/mm3 (4.5-11.0)
[2016-03-06] MEDS: ENTRESTO 97 MG PO SCH (21:56)
[2016-03-06] MEDS: FLOMAX PO SCH (21:56)
[2016-03-07] MEDS ORDERED: APRESOLINE IV PRN (05:21)
[2016-03-07] MEDS: ULTRAM PO PRN ×3 (08:14→22:59)
--- NOTE | 2016-03-07 09:21 | Progress Note ---
Assessment and Plan 1. COPD exercebation: Cotinue with bronchodilator and oxygen 2. Acute on Chronic diastolic hear failure: Continue with ACEI, BB, Gently diuresis 3. CAD: Conservative Mx 4. Hypokalemia: Corrected 5. Hypertension: Corrected D/c home today - Patient Problems (1) COPD (chronic obstructive pulmonary disease) Diagnosis Date: 03/04/16 Current Visit: Yes Status: Chronic Qualifiers: COPD type: unspecified COPD Qualified Code(s): J44.9 - Chronic obstructive pulmonary disease, unspecified Plan to address problem: Continue albuterol and Atrovent. IV Solu-Medrol. IV Levaquin. (2) Hypokalemia Diagnosis Date: 03/04/16 Current Visit: Yes Status: Acute (3) Shortness of breath Diagnosis Date: 03/04/16 Current Visit: Yes Status: Acute (4) Hypertension Diagnosis Date: 03/04/16 Current Visit: Yes Status: Chronic Qualifiers: Hypertension type: essential hypertension Qualified Code(s): I10 - Essential (primary) hypertension Subjective Date of service: 03/07/16 Principal diagnosis: COPD exacerbation Interval history: shortness of breath improving Objective - Constitutional Vitals: Vital Signs - 12hr 03/06/16 03/06/16 03/06/16 21:57 21:58 22:00 Temperature Pulse Rate 70 70 Pulse Rate [ Left Radial] Respiratory 18 Rate Blood Pressure 171/79 171/79 Blood Pressure [Left Arm] O2 Sat by Pulse Oximetry 03/07/16 03/07/16 03/07/16 00:00 04:00 05:54 Temperature 98.5 F 98.4 F Pulse Rate 83 Pulse Rate [ 76 79 Left Radial] Respiratory 18 18 Rate Blood Pressure 184/84 Blood Pressure 186/86 167/79 [Left Arm] O2 Sat by Pulse 99 99 Oximetry 03/07/16 03/07/16 08:49 08:59 Temperature 101.7 F H Pulse Rate Pulse Rate [ 100 H Left Radial] Respiratory 20 Rate Blood Pressure Blood Pressure 180/82 [Left Arm] O2 Sat by Pulse 97 94 Oximetry General appearance: Present: no acute distress, well-nourished - EENT Eyes: PERRL, EOM intact ENT: hearing intact, clear oral mucosa Ears: bilateral: normal - Neck Neck: supple, normal ROM - Respiratory Respiratory effort: normal Respiratory: bilateral: CTA - Breasts Breasts: normal - Cardiovascular Rhythm: regular Heart Sounds: Present: S1 & S2. Absent: gallop, rub Extremities: pulses intact, No edema, normal color, Full ROM - Gastrointestinal General gastrointestinal: Present: soft, non-tender, non-distended, normal bowel sounds - Genitourinary Male genitourinary: normal - Integumentary Integumentary: clear, warm, dry - Musculoskeletal Musculoskeletal: 1, strength equal bilaterally - Neurologic Neurologic: moves all extremities - Psychiatric Psychiatric: memory intact, appropriate mood/affect, intact judgment & insight - Labs CBC & Chem 7: 03/06/16 18:01 03/06/16 00:24 Labs: Abnormal lab results 03/06/16 Range/Units 18:01 [place] % (Auto) 11.8 H (0.0-7.3) % [place] # 1.1 H (0.0-0.8) K/mm3
--- NOTE | 2016-03-07 09:43 | Discharge Summary ---
Providers - Providers Date of Admission: 03/04/16 00:34 Date of discharge: 03/07/16 Attending physician: KELVIN SOLORZANO 03/07/16 Primary care physician: Enrique Hospitalization Reason for admission: Shorness of breath, COPD exercebation Condition: Stable Pertinent studies: CXR Procedures: None Hospital course: The patient is an 85 year old male who has a history of heart failure, CAD s/p PCI, COPD on home O2, CVA who presented with complaints of worsening shortness of breath and dyspnea on exertion over the past several weeks. No chest pain. On admissionpt was commnece on Bronchio dolator and iv dolumedrol Troponin negative x 2 wer normal. Echo done 04/2014 showed EF 35% but MUGA scan done 2015 showed EF 49%. Stress test done 12/2014 reveled a medium sized inferior infarction. Shortness of breath improved with broandhodilators [employer] consult and ecommended conservative mx. Pt is being diachargd to F/u with PCP Disposition: DC TO HOSPICE (HOME) Time spent for discharge: 31 min - Discharge Diagnoses (1) COPD (chronic obstructive pulmonary disease) Status: Chronic Qualifiers: COPD type: unspecified COPD Chronic bronchitis type: C Emphysema type: E Qualified Code(s): J44.9 - Chronic obstructive pulmonary disease, unspecified (2) Hypokalemia Status: Acute (3) Hypertension Status: Chronic Qualifiers: Hypertension type: essential hypertension Qualified Code(s): I10 - Essential (primary) hypertension (4) Shortness of breath Status: Acute Core Measure Documentation - Palliative Care Palliative Care/ Comfort Measures: Not Applicable - Core Measures Any of the following diagnoses?: none Exam - Constitutional Vitals: Temp Pulse Resp BP Pulse Ox 101.7 F H 100 H 20 180/82 94 03/07/16 08:59 03/07/16 08:59 03/07/16 08:59 03/07/16 08:59 03/07/16 08:59 General appearance: Present: no acute distress, well-nourished - EENT Eyes: Present: PERRL ENT: hearing intact, clear oral mucosa - Neck Neck: Present: supple, normal ROM - Respiratory Respiratory effort: normal Respiratory: bilateral: diminished - Cardiovascular Heart Sounds: Present: S1 & S2. Absent: rub, click - Extremities Extremities: pulses symmetrical, No edema Peripheral Pulses: within normal limits - Abdominal General gastrointestinal: Present: soft, non-tender, non-distended, normal bowel sounds Male genitourinary: Present: normal - Integumentary Integumentary: Present: clear, warm, dry - Musculoskeletal Musculoskeletal: gait normal, strength equal bilaterally - Psychiatric Psychiatric: appropriate mood/affect, intact judgment & insight - Neurologic Neurologic: CNII-XII intact, moves all extremities Plan Activity: fall precautions Weight Bearing Status: Weight Bear as Tolerated Diet: low salt Special Instructions: record daily weights Durable Medical Equipment Needed Upon Discharge: Wheelchair Follow up with: AVINASH DURAN [Other] - 3-5 Days KELVIN SOLORZANO MD [Staff Physician] - 7 Days Forms: Discharge Signature Page Prescriptions: Atorvastatin Calcium [Lipitor] 20 mg PO QHS #30 tablet Clopidogrel [Plavix] 75 mg PO DAILY #30 tablet Furosemide [Lasix TAB] 40 mg PO QDAY #30 tablet hydrALAZINE [Apresoline TAB] 100 mg PO TID #90 tab Potassium Chloride [K-Dur] 10 meq PO QDAY #30 tablet Spironolactone [Aldactone] 25 mg PO QDAY #30 tablet traMADol [Ultram 50 MG tab] 50 mg PO Q6H PRN #60 tablet PRN Reason: Pain, Moderate (4-6)
[2016-03-07] MEDS: LOVENOX SUB-Q SCH (09:45)
[2016-03-07] MEDS: PLAVIX PO SCH (09:47)
[2016-03-07] MEDS: APRESOLINE PO SCH ×3 (09:47→20:15)
[2016-03-07] MEDS: ALDACTONE PO SCH (09:49)
[2016-03-07] MEDS: IMDUR PO SCH (09:50)
[2016-03-07] MEDS: LOPRESSOR PO SCH ×2 (09:50→22:52)
[2016-03-07] MEDS: HALFPRIN EC PO SCH (09:51)
--- NOTE | 2016-03-07 10:24 | Progress Note ---
Assessment and Plan Acute on chronic diastolic heart failure MUGA scan 01/2016: EF 49% Echo 02/2016: EF 40-45% continue lasix-> will change to 40mg PO daily continue KCL, aldactone, metoprolol, Entresto, Imdur, hydralazine Accelerated hypertension increase hydralazine to 100mg TID CAD s/p PCI of RCA and LCX (04/2014) continue ASA, Plavix, statin COPD on O2 Hyperlipidemia Hx. of CVA Stable cardiac status. Patient may be discharged from a cardiac standpoint. Lab appointment (BMP) in the [place] office on 03/12/16 at 10:45 am. Follow up appointment with with Dr. Lyn in the [place] office on 03/25/16 at 9:30 am. The patient has been seen in conjunction with Dr. Rodriguez who agrees with the assessment and plan of care. Subjective Date of service: 03/07/16 Principal diagnosis: COPD exacerbation Interval history: The patient is resting comfortably in bed. No new complaints. Sinus rhythm on the monitor. Objective Last Vital Signs Temp 101.7 F H 03/07/16 08:59 Pulse 100 H 03/07/16 08:59 Resp 20 03/07/16 08:59 BP 180/90 03/07/16 09:50 Pulse Ox 94 03/07/16 08:59 - Physical Examination General: No Apparent Distress HEENT: Positive: Normocephaly, Mucus Membranes Moist Neck: Positive: neck supple, trachea midline Cardiac: Positive: Reg Rate and Rhythm, S1/S2 Lungs: Positive: clear to auscultation Neuro: Positive: Other (right hemiparesis) Abdomen: Positive: Soft, Active Bowel Sounds. Negative: Tender Skin: Positive: Clear. Negative: Rash Extremities: Present: normal. Absent: edema - Labs and Meds CBC 03/06/16 Range/Units 18:01 WBC 9.6 (4.5-11.0) K/mm3 RBC 3.96 (3.65-5.03) M/mm3 Hgb 12.5 (11.8-15.2) gm/dl Hct 37.4 (35.5-45.6) % Plt Count 196 (140-440) K/mm3 Lymph # 2.7 (1.2-5.4) K/mm3 [place] # 1.1 H (0.0-0.8) K/mm3 Eos # 0.0 (0.0-0.4) K/mm3 Baso # 0.0 (0.0-0.1) K/mm3 - Imaging and Cardiology EKG: image reviewed Echo: report reviewed (02/2016: EF 40-45%, impaired relaxation, RVSP 68 mmHg, moderate TR) - Telemetry EKG Rhythm: Sinus Rhythm - EKG Sinus rhythms and dysrhythmias: sinus rhythm AV and intraventricular conduction: 1 AV block Repolarization changes or abnormalities: ST or T wave suggestive of ischemia
[2016-03-07] MEDS: ENTRESTO 97 MG PO SCH ×2 (11:36→22:50)
[2016-03-07] MEDS: LASIX IV SCH (11:37)
[2016-03-07] MEDS: K-DUR PO SCH (11:49)
[2016-03-07] MEDS: LASIX PO SCH (11:50)
[2016-03-07] MEDS: LEVAQUIN 750MG/150ML 150 ML IV SCH (11:51)
--- NOTE | 2016-03-07 15:42 | XRay Report ---
AP and lateral chest: Comparison is made to the recent study of March 03, 2016. The patient has a generally coarse bronchovascular pattern most accentuated at the lung bases. There is definite vascular distention. The heart is borderline in size. These findings are unchanged. There is an area of focal linear atelectasis in the left upper lobe not previously noted. Impressions: 1. Chronic lung disease. Focal left atelectasis. 2. There may be a component of mild congestive change.
[2016-03-07 17:13] LABS: Basophils % (Auto) 0.4 % (0.0-1.8); Eosinophils % (Auto) 0.2 % (0.0-4.3); Hematocrit 35.9 % (35.5-45.6); Hemoglobin 11.9 gm/dl (11.8-15.2); Mean Corpuscular HGB Conc 33 % (32-34); Mean Corpuscular Hemoglobin 32 pg (28-32); Mean Corpuscular Volume 95 fl (84-94); Platelet Count 184 K/mm3 (140-440); Red Blood Count 3.79 M/mm3 (3.65-5.03); Red Cell Distribution Width 14.9 % (13.2-15.2); White Blood Count 10.5 K/mm3 (4.5-11.0)
[2016-03-07] MEDS: FLOMAX PO SCH (22:52)
[2016-03-08] MEDS: K-DUR PO SCH (09:22)
[2016-03-08] MEDS: LASIX PO SCH (09:22)
[2016-03-08] MEDS: APRESOLINE PO SCH ×3 (09:22→22:45)
[2016-03-08] MEDS: IMDUR PO SCH (09:22)
[2016-03-08] MEDS: LOPRESSOR PO SCH ×2 (09:22→22:45)
[2016-03-08] MEDS: PLAVIX PO SCH (09:22)
[2016-03-08] MEDS: LOVENOX SUB-Q SCH (09:23)
[2016-03-08] MEDS: ALDACTONE PO SCH (09:23)
[2016-03-08] MEDS: LEVAQUIN 750MG/150ML 150 ML IV SCH (09:23)
[2016-03-08] MEDS: ENTRESTO 97 MG PO SCH ×2 (09:23→22:47)
[2016-03-08] MEDS: HALFPRIN EC PO SCH (09:23)
--- NOTE | 2016-03-08 11:23 | Progress Note ---
Assessment and Plan Acute on chronic diastolic heart failure MUGA scan 01/2016: EF 49% Echo 02/2016: EF 40-45% continue lasix 40mg PO daily continue KCL, aldactone, metoprolol, Entresto, Imdur, hydralazine Accelerated hypertension BP improved CAD s/p PCI of RCA and LCX (04/2014) continue ASA, Plavix, statin COPD on O2 Hyperlipidemia Hx. of CVA Stable cardiac status. Patient may be discharged from a cardiac standpoint. Lab appointment (BMP) in the [place] office on 03/12/16 at 10:45 am. Follow up appointment with with Dr. Lyn in the [place] office on 03/25/16 at 9:30 am. The patient has been seen in conjunction with Dr. Rodriguez who agrees with the assessment and plan of care. Subjective Date of service: 03/08/16 Principal diagnosis: COPD exacerbation Interval history: The patient is resting comfortably in bed. No new complaints. Sinus rhythm on the monitor. Objective Last Vital Signs Temp 99.4 F 03/08/16 07:32 Pulse 74 03/08/16 09:22 Resp 20 03/08/16 07:32 BP 151/66 03/08/16 09:23 Pulse Ox 95 03/08/16 10:34 - Physical Examination General: No Apparent Distress HEENT: Positive: Normocephaly, Mucus Membranes Moist Neck: Positive: neck supple, trachea midline Cardiac: Positive: Reg Rate and Rhythm, S1/S2 Lungs: Positive: clear to auscultation Neuro: Positive: Other (right hemiparesis) Abdomen: Positive: Soft, Active Bowel Sounds. Negative: Tender Skin: Positive: Clear. Negative: Rash Extremities: Present: normal. Absent: edema - Labs and Meds CBC 03/07/16 Range/Units 16:51 WBC 10.5 (4.5-11.0) K/mm3 RBC 3.79 (3.65-5.03) M/mm3 Hgb 11.9 (11.8-15.2) gm/dl Hct 35.9 (35.5-45.6) % Plt Count 184 (140-440) K/mm3 Lymph # 1.8 (1.2-5.4) K/mm3 [place] # 1.4 H (0.0-0.8) K/mm3 Eos # 0.0 (0.0-0.4) K/mm3 Baso # 0.0 (0.0-0.1) K/mm3 - Imaging and Cardiology EKG: image reviewed Echo: report reviewed (02/2016: EF 40-45%, impaired relaxation, RVSP 68 mmHg, moderate TR) - Telemetry EKG Rhythm: Sinus Rhythm - EKG Sinus rhythms and dysrhythmias: sinus rhythm AV and intraventricular conduction: 1 AV block Repolarization changes or abnormalities: ST or T wave suggestive of ischemia
[2016-03-08] MEDS: TYLENOL PO PRN (14:01)
--- NOTE | 2016-03-08 15:02 | Progress Note ---
Assessment and Plan 1. COPD exercebation: Continue with bronchodilator and oxygen 2. Acute on Chronic diastolic hear failure: Continue with EDDA-I, beta magda, Gently diuresis 3. CAD: Conservative Mx 4. Hypokalemia: Corrected 5. Hypertension: Corrected 6. Fever: Urine culture showed normal lindsey, continue with IV antibiotics. Ordered blood culture. - Patient Problems (1) COPD (chronic obstructive pulmonary disease) Diagnosis Date: 03/04/16 Current Visit: Yes Status: Chronic Qualifiers: COPD type: unspecified COPD Qualified Code(s): J44.9 - Chronic obstructive pulmonary disease, unspecified (2) Hypokalemia Diagnosis Date: 03/04/16 Current Visit: Yes Status: Acute (3) Shortness of breath Diagnosis Date: 03/04/16 Current Visit: Yes Status: Acute (4) Hypertension Diagnosis Date: 03/04/16 Current Visit: Yes Status: Chronic Qualifiers: Hypertension type: essential hypertension Qualified Code(s): I10 - Essential (primary) hypertension Subjective Date of service: 03/08/16 Principal diagnosis: COPD exacerbation Interval history: Patient was to be discharged yesterday but was not because of fever. Still has temp of 100.2 Objective - Constitutional Vitals: Vital Signs - 12hr 03/08/16 03/08/16 03/08/16 05:36 07:32 09:22 Temperature 98.5 F 99.4 F Pulse Rate 74 Pulse Rate [ 69 74 Left Radial] Respiratory 18 20 Rate Blood Pressure 151/66 Blood Pressure 146/64 151/66 [Left Arm] O2 Sat by Pulse 97 92 Oximetry 03/08/16 03/08/16 03/08/16 09:23 10:34 11:35 Temperature 100.2 F H Pulse Rate Pulse Rate [ 80 Left Radial] Respiratory 20 Rate Blood Pressure 151/66 Blood Pressure 174/77 [Left Arm] O2 Sat by Pulse 95 99 Oximetry General appearance: Present: no acute distress, well-nourished - EENT Eyes: PERRL, EOM intact ENT: hearing intact, clear oral mucosa Ears: bilateral: normal - Neck Neck: supple, normal ROM - Respiratory Respiratory effort: normal Respiratory: bilateral: CTA - Breasts Breasts: normal - Cardiovascular Rhythm: regular Heart Sounds: Present: S1 & S2. Absent: gallop, rub Extremities: pulses intact, No edema, normal color, Full ROM - Gastrointestinal General gastrointestinal: Present: soft, non-tender, non-distended, normal bowel sounds - Genitourinary Male genitourinary: normal - Integumentary Integumentary: clear, warm, dry - Musculoskeletal Musculoskeletal: 1, strength equal bilaterally - Neurologic Neurologic: moves all extremities - Psychiatric Psychiatric: memory intact, appropriate mood/affect, intact judgment & insight - Labs CBC & Chem 7: 03/07/16 16:51 03/06/16 00:24 Labs: Abnormal lab results 03/07/16 Range/Units 16:51 MCV 95 H (84-94) fl [place] % (Auto) 13.7 H (0.0-7.3) % [place] # 1.4 H (0.0-0.8) K/mm3
[2016-03-08] MEDS: FLOMAX PO SCH (22:45)
[2016-03-08] MEDS: ULTRAM PO PRN (23:05)
[2016-03-09 06:31] LABS: Hematocrit 37.3 % (35.5-45.6); Hemoglobin 12.6 gm/dl (11.8-15.2); Mean Corpuscular HGB Conc 34 % (32-34); Mean Corpuscular Hemoglobin 32 pg (28-32); Mean Corpuscular Volume 94 fl (84-94); Platelet Count 186 K/mm3 (140-440); Red Cell Distribution Width 14.9 % (13.2-15.2); White Blood Count 7.9 K/mm3 (4.5-11.0)
[2016-03-09 06:53] LABS: Anion Gap 18 mmol/L; BUN/Creatinine Ratio 14.54; Blood Urea Nitrogen 16 mg/dL (9-20); Calcium 8.2 mg/dL (8.4-10.2); Carbon Dioxide 25 mmol/L (22-30); Glucose 126 mg/dL (75-100); Potassium 3.4 mmol/L (3.6-5.0); Sodium 137 mmol/L (137-145)
[2016-03-09 08:13] LABS: Basophils % (Manual) 0 % (0.0-1.8); Blastocytes % (Manual) 0 %; Eosinophils % (Manual) 0 % (0.0-4.3)
[2016-03-09 08:14] LABS: Anisocytosis Few
[2016-03-09 08:15] LABS: Diff Status Complete
[2016-03-09] MEDS: APRESOLINE PO SCH ×3 (09:27→20:35)
[2016-03-09] MEDS: LASIX PO SCH (09:27)
[2016-03-09] MEDS: K-DUR PO SCH (09:27)
[2016-03-09] MEDS: PLAVIX PO SCH (09:28)
[2016-03-09] MEDS: LOVENOX SUB-Q SCH (09:28)
[2016-03-09] MEDS: IMDUR PO SCH (09:28)
[2016-03-09] MEDS: LOPRESSOR PO SCH ×2 (09:28→21:42)
[2016-03-09] MEDS: HALFPRIN EC PO SCH (09:28)
[2016-03-09] MEDS: ALDACTONE PO SCH (09:28)
[2016-03-09] MEDS: LEVAQUIN PO SCH (09:28)
[2016-03-09] MEDS: ENTRESTO 97 MG PO SCH ×2 (09:29→21:43)
[2016-03-09] MEDS: ULTRAM PO PRN (09:39)
[2016-03-09] MEDS: TYLENOL PO PRN (09:39)
--- NOTE | 2016-03-09 13:17 | Progress Note ---
Assessment and Plan - Patient Problems (1) CHF (congestive heart failure) Current Visit: Yes Status: Acute Qualifiers: Congestive heart failure type: unspecified congestive heart failure type Congestive heart failure chronicity: chronic Qualified Code(s): I50.9 - Heart failure, unspecified Plan to address problem: Clinically improving , continue current management (2) Shortness of breath Diagnosis Date: 03/04/16 Current Visit: Yes Status: Acute Plan to address problem: Improving , continue current management (3) COPD (chronic obstructive pulmonary disease) Diagnosis Date: 03/04/16 Current Visit: Yes Status: Chronic Qualifiers: COPD type: unspecified COPD Qualified Code(s): J44.9 - Chronic obstructive pulmonary disease, unspecified Plan to address problem: clinically improving (4) Hypertension Diagnosis Date: 03/04/16 Current Visit: Yes Status: Chronic Qualifiers: Hypertension type: essential hypertension Qualified Code(s): I10 - Essential (primary) hypertension Subjective Date of service: 03/09/16 Principal diagnosis: COPD exacerbation Interval history: Covering Dr Nunez Patient seen and examined , chart reviewed ,patient stated that he is feeling better , no chest pain and shortness of breath is improving .No fever reported .Has ongoing pain in the left knee and the right foot . Otherwise feeling better Objective - Constitutional Vitals: Vital Signs - 12hr 03/09/16 03/09/16 03/09/16 06:03 07:25 08:00 Temperature 99.1 F 99.0 F Pulse Rate 75 Pulse Rate [ 72 From Monitor] Pulse Rate [ 76 Left Radial] Respiratory 20 Rate Blood Pressure Blood Pressure 158/72 [Left Arm] Blood Pressure 156/69 [Right Arm] O2 Sat by Pulse 98 94 Oximetry 03/09/16 09:28 Temperature Pulse Rate 72 Pulse Rate [ From Monitor] Pulse Rate [ Left Radial] Respiratory Rate Blood Pressure 156/69 Blood Pressure [Left Arm] Blood Pressure [Right Arm] O2 Sat by Pulse Oximetry General appearance: Present: no acute distress - EENT Eyes: EOM intact ENT: hearing intact Ears: bilateral: normal - Neck Neck: supple, normal ROM - Respiratory Respiratory: bilateral: diminished - Cardiovascular Rhythm: regular Heart Sounds: Present: S1 & S2 Extremities: normal temperature Extremity abnormal: pulses diminished - Gastrointestinal General gastrointestinal: Present: soft, non-tender Rectal Exam: deferred - Genitourinary Male genitourinary: deferred - Integumentary Integumentary: warm, dry - Musculoskeletal Musculoskeletal: strength equal bilaterally - Neurologic Neurologic: CNII-XII intact - Psychiatric Psychiatric: appropriate mood/affect - Labs CBC & Chem 7: 03/09/16 06:09 03/09/16 06:09 Labs: Abnormal lab results 03/09/16 03/09/16 Range/Units 06:09 06:09 Seg Neuts % (Manual) 77.0 H (40.0-70.0) % Monocytes % (Manual) 8.0 H (0.0-7.3) % Potassium 3.4 L (3.6-5.0) mmol/L Chloride 97.0 L (98-107) mmol/L Glucose 126 H (75-100) mg/dL Calcium 8.2 L (8.4-10.2) mg/dL
[2016-03-09] MEDS: FLOMAX PO SCH (21:42)
[2016-03-10] MEDS: ULTRAM PO PRN (01:46)
[2016-03-10 05:43] LABS: Basophils % (Auto) 0.3 % (0.0-1.8); Eosinophils % (Auto) 0.2 % (0.0-4.3); Hematocrit 38.8 % (35.5-45.6); Hemoglobin 12.9 gm/dl (11.8-15.2); Mean Corpuscular HGB Conc 33 % (32-34); Mean Corpuscular Hemoglobin 31 pg (28-32); Mean Corpuscular Volume 94 fl (84-94); Platelet Count 211 K/mm3 (140-440); Red Blood Count 4.11 M/mm3 (3.65-5.03); Red Cell Distribution Width 14.7 % (13.2-15.2); White Blood Count 8.8 K/mm3 (4.5-11.0)
[2016-03-10] MEDS: LEVAQUIN PO SCH (09:54)
[2016-03-10] MEDS: K-DUR PO SCH (09:55)
[2016-03-10] MEDS: ALDACTONE PO SCH (09:55)
[2016-03-10] MEDS: LASIX PO SCH (09:55)
[2016-03-10] MEDS: PLAVIX PO SCH (09:55)
[2016-03-10] MEDS: HALFPRIN EC PO SCH (09:55)
[2016-03-10] MEDS: APRESOLINE PO SCH (09:55)
[2016-03-10] MEDS: LOPRESSOR PO SCH (09:55)
[2016-03-10] MEDS: IMDUR PO SCH (09:56)
[2016-03-10] MEDS: ENTRESTO 97 MG PO SCH (09:57)
[2016-03-10] MEDS: LOVENOX SUB-Q SCH (09:57)
--- NOTE | 2016-03-10 12:23 | Progress Note ---
Assessment and Plan - Patient Problems (1) CHF (congestive heart failure) Current Visit: Yes Status: Acute Qualifiers: Congestive heart failure type: unspecified congestive heart failure type Congestive heart failure chronicity: chronic Qualified Code(s): I50.9 - Heart failure, unspecified Plan to address problem: Clinically improving , continue current management will plan to discharge home today as previously planned by dr Nunez (2) Shortness of breath Diagnosis Date: 03/04/16 Current Visit: Yes Status: Acute Plan to address problem: Improving , continue current management (3) COPD (chronic obstructive pulmonary disease) Diagnosis Date: 03/04/16 Current Visit: Yes Status: Chronic Qualifiers: COPD type: unspecified COPD Qualified Code(s): J44.9 - Chronic obstructive pulmonary disease, unspecified Plan to address problem: clinically improving (4) Hypertension Diagnosis Date: 03/04/16 Current Visit: Yes Status: Chronic Qualifiers: Hypertension type: essential hypertension Qualified Code(s): I10 - Essential (primary) hypertension Subjective Date of service: 03/10/16 Principal diagnosis: COPD exacerbation Interval history: Patient feels better and denied any further complaints . No fever or chills reported in past 24 hours .Patient otherwise doing well and enquiring about possible discharge today . Objective - Constitutional Vitals: Vital Signs - 12hr 03/10/16 03/10/16 05:00 09:19 Temperature 97.6 F 99.1 F Pulse Rate [ 74 From Monitor] Pulse Rate [ 79 Left Radial] Respiratory 20 18 Rate Blood Pressure 156/70 144/65 [Left Arm] O2 Sat by Pulse 94 97 Oximetry General appearance: Present: no acute distress - EENT Eyes: PERRL ENT: hearing intact - Neck Neck: supple - Respiratory Respiratory effort: normal Respiratory: bilateral: CTA - Cardiovascular Rhythm: regular Extremities: no ischemia, pulses symmetrical Extremity abnormal: edema - Gastrointestinal General gastrointestinal: Present: soft, non-tender, non-distended, normal bowel sounds Rectal Exam: deferred - Genitourinary Male genitourinary: deferred - Integumentary Integumentary: warm, dry - Neurologic Neurologic: CNII-XII intact - Psychiatric Psychiatric: appropriate mood/affect - Labs CBC & Chem 7: 03/10/16 04:50 03/09/16 06:09 Labs: Abnormal lab results 03/10/16 Range/Units 04:50 Lymph % (Auto) 12.8 L (13.4-35.0) % [place] % (Auto) 15.4 H (0.0-7.3) % Lymph # 1.1 L (1.2-5.4) K/mm3 [place] # 1.4 H (0.0-0.8) K/mm3 Seg Neutrophils % 71.3 H (40.0-70.0) %
[2016-03-10 13:40] VITALS: BP 132/60
[2016-03-11] MEDS ORDERED: LASIX PO SCH (10:00)
== END 2016-03-10 15:47 | disposition hospice, home (50) | DRG 291 ==
LOC: ED 15:39 → 4A 03-04 00:34
PROVIDERS: ADMIT Internal Medicine; ATTEND Family Medicine
DX: I50.33 Acute on chronic diastolic (congestive) heart failure (principal); J96.00 Acute respiratory failure, unspecified whether with hypoxia or hypercapnia; J44.1 Chronic obstructive pulmonary disease with (acute) exacerbation; I69.351 Hemiplegia and hemiparesis following cerebral infarction affecting right dominant side; I25.10 Atherosclerotic heart disease of native coronary artery without angina pectoris; I11.0 Hypertensive heart disease with heart failure; M19.90 Unspecified osteoarthritis, unspecified site; E78.5 Hyperlipidemia, unspecified; H40.9 Unspecified glaucoma; E87.6 Hypokalemia; F32.9 Major depressive disorder, single episode, unspecified; F03.90 Unspecified dementia, unspecified severity, without behavioral disturbance, psychotic disturbance, mood disturbance, and anxiety; E05.90 Thyrotoxicosis, unspecified without thyrotoxic crisis or storm; M25.571 Pain in right ankle and joints of right foot; M25.561 Pain in right knee; Z95.5 Presence of coronary angioplasty implant and graft; Z79.82 Long term (current) use of aspirin; Z79.02 Long term (current) use of antithrombotics/antiplatelets; Z79.899 Other long term (current) drug therapy; Z98.42 Cataract extraction status, left eye; Z98.41 Cataract extraction status, right eye; Z87.891 Personal history of nicotine dependence; I25.2 Old myocardial infarction
CPT/HCPCS: 36415; 71020; 80048; 80053; 82550; 82553; 83735; 84484; 85007; 85025; 85610; 85730; 87040; 87086; 93005; 93010; 93306; 94760; A9270-GY; J0360; J1650; J1940; J1956

== ENCOUNTER → 2017-10-08 | Outpatient (CLI) | payer MEDICARE ==
--- NOTE | 2017-10-08 15:48 | XRay Report ---
PELVIS RADIOGRAPH INDICATION: Pelvic and perineal pain. COMPARISON: None similar. FINDINGS: A frontal radiograph demonstrates intact pelvic articulation, including the hips. Normal bilateral femoral head contours. Atherosclerotic vascular calcifications and few phleboliths. Slight lower lumbar degenerative changes. CONCLUSION: No acute radiographic abnormality, as described. Thank you for the opportunity to participate in this patient's care.
--- NOTE | 2017-10-08 16:54 | XRay Report ---
FINAL REPORT EXAM: XR KNEES STANDING AP BILATERAL HISTORY: KNEE PAIN TECHNIQUE: AP bilateral standing single views of the knees were performed Comparison: None FINDINGS: Mild right greater than left medial joint space narrowing. No other sequela of osteoarthritis identified. Global osteopenia. No significant soft tissue reticulation. 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
--- NOTE | 2017-10-08 16:58 | XRay Report ---
FINAL REPORT EXAM: XR SPINE LUMBOSACRAL 2-3V HISTORY: LOW BACK PAIN TECHNIQUE: Three views lumbosacral spine Comparison: None FINDINGS: Global osteopenia. Slight straightening of the normal lumbar lordosis. Biconcave central wedging L2 vertebral body. Vacuum discs L3/L4, L4/L5, and L5/S1. No spondylolisthesis. Minimal scoliotic curvature. Advanced facet osteoarthritis. Aortic and iliac artery calcifications. Posterior osteophytic change incompletely assessed. Sacral arches are intact. SI joints are open. 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 Nonspecific biconcave L2 wedging. If there are no contraindications, consider MRI lumbosacral spine for undetected compression/trabecular fracture.
== END | disposition home or self-care (01) ==
LOC: XRAY 09:06
PROVIDERS: ATTEND Orthopaedic Surgery
DX: M47.897 Other spondylosis, lumbosacral region (principal); M17.0 Bilateral primary osteoarthritis of knee; M85.88 Other specified disorders of bone density and structure, other site; I11.0 Hypertensive heart disease with heart failure; I50.9 Heart failure, unspecified; J44.9 Chronic obstructive pulmonary disease, unspecified; E78.5 Hyperlipidemia, unspecified; I25.10 Atherosclerotic heart disease of native coronary artery without angina pectoris; E78.00 Pure hypercholesterolemia, unspecified; M19.90 Unspecified osteoarthritis, unspecified site; Z87.891 Personal history of nicotine dependence; Z86.73 Personal history of transient ischemic attack (TIA), and cerebral infarction without residual deficits
CPT/HCPCS: 72100; 72170; 73565

== ENCOUNTER 2020-08-23 11:03 | Inpatient (IN) | payer MEDICARE ==
--- NOTE | 2020-08-23 11:21 | Emergency Department Report ---
ED Chest Pain HPI - General Stated Complaint: BILATERAL LEG PAIN Time Seen by Provider: 08/23/20 11:08 Source: patient, EMS, old records reviewed Mode of arrival: Stretcher Limitations: No Limitations - History of Present Illness Initial Comments: Chief complaint: Chest pain leg swelling HPI: This is an 89-year-old male with history of congestive systolic heart failure EF 35 to 40%, hypertension, dyslipidemia, CVA, CAD, BPH, carotid stenosis who presents with chest pain and bilateral lower extremity swelling. Chest pain began Friday 4 days prior. Mild left-sided nondescript pain. No associated with exertion or eating. Pain is persistent at rest. Patient has had lower leg swelling severe for several weeks. Lasix dose was doubled last week. Patient has mild shortness of breath at rest. Significant shortness of breath with exertion.. Denies cough. He lives with son. 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 Complaint: chest pain -: days(s) (4 days) Onset: during rest Pain Radiation: none Severity: mild Severity scale (0 -10): 4 Quality: dull Consistency: constant Improves With: nothing Worsens With: nothing Other Symptoms: other (Shortness of breath bilateral extremity swelling) - Related Data Home Medications Medication Instructions Recorded Confirmed Last Taken Entresto 97 mg-103 mg Tablet 97 - 103 mg PO BID 07/16/16 08/23/20 Unknown Bimatoprost 1 drop OU Q24HR 08/03/19 08/23/20 Unknown Brimonidine Tartrate [Alphagan P 5 ml OP Q24HR 08/03/19 08/23/20 Unknown 0.1%] Dorzolamide HCl [Trusopt] 1 drop OP Q24HR 08/03/19 08/23/20 Unknown AtorvaSTATin [Lipitor] 40 mg PO QHS 08/23/20 08/23/20 Unknown ISOSORBIDE MONOnitrate [Imdur ER] 30 mg PO BID 08/23/20 08/23/20 Unknown hydrALAZINE [Apresoline TAB] 100 mg PO BID 08/23/20 08/23/20 Unknown Previous Rx's Medication Instructions Recorded Last Taken Type Aspirin EC [Halfprin EC] 81 mg PO DAILY #30 tablet 08/04/19 Unknown Rx Clopidogrel [Plavix] 75 mg PO DAILY #30 tablet 08/04/19 Unknown Rx Furosemide [Lasix TAB] 40 mg PO QDAY #30 06/10/20 Unknown Rx Metoprolol [Lopressor TAB] 50 mg PO BID #60 tablet 08/04/19 Unknown Rx Potassium Chloride [K-Dur] 20 meq PO QDAY #30 tablet 08/04/19 Unknown Rx Sacubitril/Valsartan [Entresto 97 1 each PO BID #60 08/04/19 Unknown Rx mg-103 mg Tablet] Tamsulosin [Flomax] 0.4 mg PO QHS #30 capsule 08/04/19 Unknown Rx Allergies Allergy/AdvReac Type Severity Reaction Status Date / Time No Known Allergies Allergy Verified 12/23/14 18:25 Heart Score - HEART Score History: Slightly suspicious EKG: Significant ST-depression Age: > 65 Risk factors: > 3 risk factors or hx of atherosclerotic disease Troponin: < normal limit HEART Score: 6 - EKG Read Time Time EKG Completed: 11:20 EKG Read Time: 11:20 ED Review of Systems ROS: Stated complaint: BILATERAL LEG PAIN Other details as noted in HPI Comment: All other systems reviewed and negative Constitutional: denies: fever, malaise Respiratory: shortness of breath. denies: cough, wheezing Cardiovascular: chest pain, edema Gastrointestinal: denies: abdominal pain, nausea, vomiting ED Past Medical Hx - Past Medical History Previous Medical History?: Yes Hx Hypertension: Yes Hx CVA: Yes Hx Heart Attack/AMI: Yes Hx Congestive Heart Failure: Yes Hx Renal Disease: Yes Hx Arthritis: Yes Hx COPD: Yes Additional medical history: CAD. HIGH CHOLESTEROL. GLAUCOMA - Surgical History Past Surgical History?: Yes Hx Coronary Stent: Yes Additional Surgical History: BILATERAL CATARACT SURGERY - Social History Smoking Status: Former Smoker Substance Use Type: None - Medications Home Medications: Home Medications Medication Instructions Recorded Confirmed Last Taken Type Entresto 97 mg-103 mg Tablet 97 - 103 mg PO BID 07/16/16 08/23/20 Unknown History Bimatoprost 1 drop OU Q24HR 08/03/19 08/23/20 Unknown History Brimonidine Tartrate [Alphagan P 5 ml OP Q24HR 08/03/19 08/23/20 Unknown History 0.1%] Dorzolamide HCl [Trusopt] 1 drop OP Q24HR 08/03/19 08/23/20 Unknown History Aspirin EC [Halfprin EC] 81 mg PO DAILY #30 tablet 08/04/19 08/23/20 Unknown Rx Clopidogrel [Plavix] 75 mg PO DAILY #30 tablet 08/04/19 08/23/20 Unknown Rx Furosemide [Lasix TAB] 40 mg PO QDAY #30 08/04/19 08/23/20 Unknown Rx Metoprolol [Lopressor TAB] 50 mg PO BID #60 tablet 08/04/19 08/23/20 Unknown Rx Potassium Chloride [K-Dur] 20 meq PO QDAY #30 tablet 08/04/19 08/23/20 Unknown Rx Sacubitril/Valsartan [Entresto 97 1 each PO BID #60 08/04/19 08/23/20 Unknown Rx mg-103 mg Tablet] Tamsulosin [Flomax] 0.4 mg PO QHS #30 capsule 08/04/19 08/23/20 Unknown Rx AtorvaSTATin [Lipitor] 40 mg PO QHS 08/23/20 08/23/20 Unknown History ISOSORBIDE MONOnitrate [Imdur ER] 30 mg PO BID 08/23/20 08/23/20 Unknown History hydrALAZINE [Apresoline TAB] 100 mg PO BID 08/23/20 08/23/20 Unknown History ED Physical Exam - General Limitations: No Limitations General appearance: alert, in no apparent distress - Head Head exam: Present: atraumatic, normocephalic - Eye Eye exam: Present: normal appearance - ENT ENT exam: Present: mucous membranes moist - Neck Neck exam: Present: normal inspection, full ROM - Respiratory Respiratory exam: Present: normal lung sounds bilaterally. Absent: respiratory distress - Cardiovascular Cardiovascular Exam: Present: regular rate, normal rhythm, normal heart sounds, JVD (Significant JVD at 90 degrees). Absent: rubs, gallop - GI/Abdominal GI/Abdominal exam: Present: soft. Absent: distended, tenderness, guarding, rebound - Extremities Exam Extremities exam: Present: other (4+ pitting edema in both extremities) - Neurological Exam Neurological exam: Present: alert, oriented X3 - Psychiatric Psychiatric exam: Present: normal affect, normal mood - Skin Skin exam: Present: warm, dry, intact, normal color. Absent: rash ED Course Vital Signs 08/23/20 11:37 Temperature 98.1 F Pulse Rate 79 Respiratory 24 Rate Blood Pressure 196/112 [Left] O2 Sat by Pulse 96 Oximetry DARNELL score - Darnell Score Age > 65: (1) Yes Aspirin use within the Past 7 Days: (1) Yes 3 or more CAD Risk Factors: (1) Yes 2 or more Angina events in past 24 hrs: (1) Yes Known CAD with more than 50% Stenosis: (1) Yes Elevated Cardiac Markers: (0) No ST Deviation Greater than 0.5mm: (0) No DARNELL Score: 5 ED Medical Decision Making - Lab Data Result diagrams: 08/23/20 11:55 08/23/20 11:55 - EKG Data -: EKG Interpreted by Me EKG shows normal: sinus rhythm, axis Rate: normal - EKG Data Interpretation: nonspecific ST-T wave arnel 08/23/20 11:45 EKG obtained 1120 EKG interpreted by me Normal sinus rhythm rate 80 bpm normal axis prolonged DE interval nonspecific T wave pattern no ST elevation - Radiology Data Radiology results: report reviewed Patient Name: JULIO POWELL JUNIOR Gender: Male Date of : 1930 Referring Provider: ASHLEY BETTS Organization: [facility] Accession Number: [id number] Requested Date: August 23, 2020 11:16 Report Status: Final Requested Procedure: 1 Procedure Description: XR chest 1V ap Modality: XR Findings Reporting MD: Dragan Ramos Dictation Time: August 23, 2020 10:51 Public Affairs Director: Not available Ward Attendant Date: . XR chest 1V ap INDICATION / CLINICAL INFORMATION: Chest Pain. COMPARISON: 08/02/2019 FINDINGS: SUPPORT DEVICES: None. HEART /PULMONARY VASCULATURE: There is cardiac enlargement and pulmonary vasculature congestion. LUNGS / PLEURA: Mild diffuse increased interstitial opacities likely reflect interstitial edema. Findings are superimposed upon chronic interstitial lung changes. No focal alveolar consolidation, pleural effusion, or pneumothorax. ADDITIONAL FINDINGS: No significant additional findings. IMPRESSION: CHF with interstitial edema. Signer Name: Dragan Ramos MD Signed: 08/23/2020 10:51 AM Workstation Name: [id number] - Medical Decision Making 1. Acute systolic heart failure: Patient has evidence of hypervolemia including pulmonary edema and significant lower extremity edema. IV furosemide administered. Further management with EDDA inhibitor and beta-magda also initiated. 2. Nonspecific chest pain atypical for ACS likely GERD. Will trend troponin values. First troponin value negative Work-up notable for hypokalemia 3.0, markedly elevated BNP, otherwise CBC chemistry, Critical care attestation.: If time is entered above; I have spent that time in minutes in the direct care of this critically ill patient, excluding procedure time. ED Disposition Clinical Impression: Acute systolic heart failure, Hypertensive urgency, CAD (coronary artery disease), GERD (gastroesophageal reflux disease) Disposition: OP ADMIT IP TO THIS HOSP Is pt being admited?: Yes Does the pt Need Aspirin: No Condition: Stable
[2020-08-23 12:25] LABS: Hemoglobin 11.7 gm/dl (11.8-15.2); Mean Corpuscular HGB Conc 33 % (32-34); Mean Corpuscular Volume 99 fl (84-94); Platelet Count 124 K/mm3 (140-440); Red Blood Count 3.53 M/mm3 (3.65-5.03); Red Cell Distribution Width 17.4 % (13.2-15.2)
[2020-08-23 12:49] LABS: Alanine Aminotransferase 13 units/L (7-56); Albumin 3.3 g/dL (3.9-5); BUN/Creatinine Ratio 14; Blood Urea Nitrogen 17 mg/dL (9-20); Calcium 8.7 mg/dL (8.4-10.2); Hemolysis Index 8
[2020-08-23] MEDS ORDERED: VALSARTAN 40 MG TAB PO ONE (14:00)
[2020-08-23 14:29] LABS: Total Cells Counted 100
[2020-08-23 14:31] LABS: Platelet Estimate Appears Increased; Poikilocytosis Few
--- NOTE | 2020-08-23 19:36 | History and Physical Report ---
History of Present Illness Date of examination: 08/23/20 Date of admission: 08/23/20 13:10 Chief complaint: Increasing shortness of breath and bilateral lower extremity edema for 4 days History of present illness: 89-year-old male with history of congestive heart failure, hypertension, dyslipidemia, CVA, coronary artery disease, BPH and carotid stenosis comes in fo r chest pain shortness of breath and bilateral lower extremity swelling of 4 days duration. Shortness of breath on minimal exertion. Orthopnea present. Patient Lasix was increased recently. No fever or chills. Orthopnea present. Patient has class IV NYHA symptoms. Patient is compliant with his medications. Patient also has glaucoma. No fever or chills. No exposure to coronavirus. Minimal exercise is a exacerbating factor and rest is a relieving factor. Slight chest pain. Heart Score - HEART Score History: Slightly suspicious EKG: Significant ST-depression Age: > 65 Risk factors: > 3 risk factors or hx of atherosclerotic disease Troponin: < normal limit HEART Score: 6 - Past Medical History Previous Medical History?: Yes --Hypertension: Yes --CVA: Yes --Heart Attack/AMI: Yes --Congestive Heart Failure: Yes --Renal Disease: Yes --Arthritis: Yes --COPD: Yes --Additional medical history: CAD. HIGH CHOLESTEROL. GLAUCOMA - Surgical History Past Surgical History?: Yes --Coronary Stent: Yes --Additional Surgical History: BILATERAL CATARACT SURGERY - Social History Smoking Status: Former Smoker Substance Use Type: None Review of Systems ROS: Constitutional no weight loss or weight gain no fever or chills HEENT no sore throat no post nasal drip no diplopia Neck no neck stiffness no lymph gland enlargement Chest and lungs shortness of breath at rest CVS orthopnea present GI no nausea no vomiting no diarrhea Genitourinary system no dysuria no flank pain Musculoskeletal system no muscle pains no joint pains 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 Skin no rash no itching Psychiatric no depression no homicidal or suicidal tendencies Hematologic no lymphedema or bruising Endocrine no polydipsia no polyuria no cold intolerance no heat intolerance Medications and Allergies Allergies Allergy/AdvReac Type Severity Reaction Status Date / Time No Known Allergies Allergy Verified 12/23/14 18:25 Home Medications Medication Instructions Recorded Confirmed Last Taken Type Entresto 97 mg-103 mg Tablet 97 - 103 mg PO BID 07/16/16 08/23/20 Unknown History Bimatoprost 1 drop OU Q24HR 08/03/19 08/23/20 Unknown History Brimonidine Tartrate [Alphagan P 5 ml OP Q24HR 08/03/19 08/23/20 Unknown History 0.1%] Dorzolamide HCl [Trusopt] 1 drop OP Q24HR /11/1308/23/20 Unknown History Aspirin EC [Halfprin EC] 81 mg PO DAILY #30 tablet 08/04/19 08/23/20 Unknown Rx Clopidogrel [Plavix] 75 mg PO DAILY #30 tablet 08/04/19 08/23/20 Unknown Rx Furosemide [Lasix TAB] 40 mg PO QDAY #30 08/04/19 08/23/20 Unknown Rx Metoprolol [Lopressor TAB] 50 mg PO BID #60 tablet 08/04/19 08/23/20 Unknown Rx Potassium Chloride [K-Dur] 20 meq PO QDAY #30 tablet 08/04/19 08/23/20 Unknown Rx Sacubitril/Valsartan [Entresto 97 1 each PO BID #60 08/04/19 08/23/20 Unknown Rx mg-103 mg Tablet] Tamsulosin [Flomax] 0.4 mg PO QHS #30 capsule 08/04/19 08/23/20 Unknown Rx AtorvaSTATin [Lipitor] 40 mg PO QHS 08/23/20 08/23/20 Unknown History ISOSORBIDE MONOnitrate [Imdur ER] 30 mg PO BID 08/23/20 08/23/20 Unknown History hydrALAZINE [Apresoline TAB] 100 mg PO BID 08/23/20 08/23/20 Unknown History Exam - Constitutional Vitals: Temp Pulse Resp BP Pulse Ox 97.5 F L 77 18 167/99 99 08/23/20 15:39 08/23/20 15:39 08/23/20 15:39 08/23/20 16:15 08/23/20 16:15 General appearance: Present: mild distress, well-nourished - EENT Eyes: Present: PERRL ENT: hearing intact, clear oral mucosa - Neck Neck: Present: supple, normal ROM - Respiratory Respiratory effort: normal Respiratory: bilateral: CTA - Cardiovascular Heart rate: 78 Rhythm: regular Heart Sounds: Present: S1 & S2. Absent: rub, click - Extremities Extremities: no ischemia, pulses intact, pulses symmetrical, No edema, abnormal (3+ pedal edema) Extremity abnormal: edema, other (3+ pedal edema) Peripheral Pulses: within normal limits - Abdominal General gastrointestinal: Present: soft, non-tender, non-distended, normal bowel sounds Male genitourinary: Present: normal - Integumentary Integumentary: Present: clear, warm, dry - Musculoskeletal Musculoskeletal: gait normal, strength equal bilaterally - Psychiatric Psychiatric: appropriate mood/affect, intact judgment & insight - Neurologic Neurologic: CNII-XII intact, moves all extremities - Allied Health Allied health notes reviewed: nursing, case management HEART Score - HEART Score EKG: Significant ST-depression Age: > 65 Risk factors: > 3 risk factors or hx of atherosclerotic disease Troponin: Troponin T < 0.010 ng/mL (0.00-0.029) 08/23/20 11:55 Troponin: < normal limit Results - Labs CBC & Chem 7: 08/24/20 05:20 08/24/20 05:20 Labs: Laboratory Last Values WBC 3.6 K/mm3 (4.5-11.0) L 08/23/20 11:55 RBC 3.53 M/mm3 (3.65-5.03) L 08/23/20 11:55 Hgb 11.7 gm/dl (11.8-15.2) L 08/23/20 11:55 Hct 35.0 % (35.5-45.6) L 08/23/20 11:55 MCV 99 fl (84-94) H 08/23/20 11:55 MCH 33 pg (28-32) H 08/23/20 11:55 MCHC 33 % (32-34) 08/23/20 11:55 RDW 17.4 % (13.2-15.2) H 08/23/20 11:55 Plt Count 124 K/mm3 (140-440) L 08/23/20 11:55 Add Manual Diff Complete 08/23/20 11:55 Total Counted 100 08/23/20 11:55 Seg Neuts % (Manual) 51.0 % (40.0-70.0) 08/23/20 11:55 Lymphocytes % (Manual) 41.0 % (13.4-35.0) H 08/23/20 11:55 Monocytes % (Manual) 5.0 % (0.0-7.3) 08/23/20 11:55 Eosinophils % (Manual) 1.0 % (0.0-4.3) 08/23/20 11:55 Metamyelocytes % 2.0 % 08/23/20 11:55 Nucleated RBC % Not Reportable 08/23/20 11:55 Seg Neutrophils # Man 1.8 K/mm3 (1.8-7.7) 08/23/20 11:55 Band Neutrophils # 0.0 K/mm3 08/23/20 11:55 Lymphocytes # (Manual) 1.5 K/mm3 (1.2-5.4) 08/23/20 11:55 Abs React Lymphs (Man) 0.0 K/mm3 08/23/20 11:55 Monocytes # (Manual) 0.2 K/mm3 (0.0-0.8) 08/23/20 11:55 Eosinophils # (Manual) 0.0 K/mm3 (0.0-0.4) 08/23/20 11:55 Basophils # (Manual) 0.0 K/mm3 (0.0-0.1) 08/23/20 11:55 Metamyelocytes # 0.1 K/mm3 08/23/20 11:55 Myelocytes # 0.0 K/mm3 08/23/20 11:55 Promyelocytes # 0.0 K/mm3 08/23/20 11:55 Blast Cells # 0.0 K/mm3 08/23/20 11:55 WBC Morphology Not Reportable 08/23/20 11:55 Hypersegmented Neuts Not Reportable 08/23/20 11:55 Hyposegmented Neuts Not Reportable 08/23/20 11:55 Hypogranular Neuts Not Reportable 08/23/20 11:55 Smudge Cells Not Reportable 08/23/20 11:55 Toxic Granulation Not Reportable 08/23/20 11:55 Toxic Vacuolation Not Reportable 08/23/20 11:55 Dohle Bodies Not Reportable 08/23/20 11:55 Pelger-Huet Anomaly Not Reportable 08/23/20 11:55 Belkis Rods Not Reportable 08/23/20 11:55 Platelet Estimate Appears increased 08/23/20 11:55 Clumped Platelets Not Reportable 08/23/20 11:55 Plt Clumps, EDTA Not Reportable 08/23/20 11:55 Large Platelets Not Reportable 08/23/20 11:55 Giant Platelets Not Reportable 08/23/20 11:55 Platelet Satelliting Not Reportable 08/23/20 11:55 Plt Morphology Comment Not Reportable 08/23/20 11:55 RBC Morphology Not Reportable 08/23/20 11:55 Dimorphic RBCs Not Reportable 08/23/20 11:55 Polychromasia Not Reportable 08/23/20 11:55 Hypochromasia Not Reportable 08/23/20 11:55 Poikilocytosis Few 08/23/20 11:55 Anisocytosis Not Reportable 08/23/20 11:55 Microcytosis Not Reportable 08/23/20 11:55 Macrocytosis Not Reportable 08/23/20 11:55 Spherocytes Not Reportable 08/23/20 11:55 Pappenheimer Bodies Not Reportable 08/23/20 11:55 Sickle Cells Not Reportable 08/23/20 11:55 Target Cells Not Reportable 08/23/20 11:55 Tear Drop Cells Not Reportable 08/23/20 11:55 Ovalocytes Not Reportable 08/23/20 11:55 Helmet Cells Not Reportable 08/23/20 11:[address] [place] Bodies Not Reportable 08/23/20 11:55 [place] Rings Not Reportable 08/23/20 11:55 Jacob Cells Not Reportable 08/23/20 11:55 Bite Cells Not Reportable 08/23/20 11:55 Crenated Cell Not Reportable 08/23/20 11:55 Elliptocytes Not Reportable 08/23/20 11:55 Acanthocytes (Spur) 1+ 08/23/20 11:55 Rouleaux Not Reportable 08/23/20 11:55 Hemoglobin C Crystals Not Reportable 08/23/20 11:55 Schistocytes Not Reportable 08/23/20 11:55 Malaria parasites Not Reportable 08/23/20 11:55 Alvarez Bodies Not Reportable 08/23/20 11:55 Hem Pathologist Commnt No 08/23/20 11:55 Sodium 137 mmol/L (137-145) 08/23/20 11:55 Potassium 3.0 mmol/L (3.6-5.0) L 08/23/20 11:55 Chloride 104.7 mmol/L (98-107) 08/23/20 11:55 Carbon Dioxide 19 mmol/L (22-30) L 08/23/20 11:55 Anion Gap 16 mmol/L 08/23/20 11:55 BUN 17 mg/dL (9-20) 08/23/20 11:55 Creatinine 1.2 mg/dL (0.8-1.3) 08/23/20 11:55 Estimated GFR > 60 ml/min 08/23/20 11:55 BUN/Creatinine Ratio 14 % 08/23/20 11:55 Glucose 127 mg/dL (75-100) H 08/23/20 11:55 Calcium 8.7 mg/dL (8.4-10.2) 08/23/20 11:55 Total Bilirubin 1.00 mg/dL (0.1-1.2) 08/23/20 11:55 AST 17 units/L (5-40) 08/23/20 11:55 ALT 13 units/L (7-56) 08/23/20 11:55 Alkaline Phosphatase 122 units/L (35-129) 08/23/20 11:55 Troponin T < 0.010 ng/mL (0.00-0.029) 08/23/20 11:55 NT-Pro-B Natriuret Pep 91933 pg/mL (0-900) H 08/23/20 11:55 Total Protein 7.1 g/dL (6.3-8.2) 08/23/20 11:55 Albumin 3.3 g/dL (3.9-5) L 08/23/20 11:55 Albumin/Globulin Ratio 0.9 % 08/23/20 11:55 Short CBC 08/23/20 08/24/20 Range/Units 11:55 05:20 WBC 3.6 L 3.7 L (4.5-11.0) K/mm3 Hgb 11.7 L 11.7 L (11.8-15.2) gm/dl Hct 35.0 L 34.9 L (35.5-45.6) % Plt Count 124 L 133 L (140-440) K/mm3 BMP 08/23/20 08/24/20 11:55 05:20 Sodium 137 141 Potassium 3.0 L 3.8 D Chloride 104.7 106.6 Carbon Dioxide 19 L 23 BUN 17 15 Creatinine 1.2 1.0 Glucose 127 H 103 H Calcium 8.7 8.6 Cardiac Enzymes 08/23/20 Range/Units 11:55 Troponin T < 0.010 (0.00-0.029) ng/mL Liver Function 08/23/20 08/24/20 Range/Units 11:55 05:20 Total Bilirubin 1.00 1.00 (0.1-1.2) mg/dL AST 17 16 (5-40) units/L ALT 13 12 (7-56) units/L Alkaline Phosphatase 122 106 (35-129) units/L Albumin 3.3 L 3.2 L (3.9-5) g/dL [place]/IV: Voiding Method Toilet Assessment and Plan Advance Directives: Yes (Full code) VTE prophylaxis?: Chemical Plan of care discussed with patient/family: Yes - Patient Problems (1) Acute respiratory failure with hypoxia Current Visit: Yes Status: Acute Plan to address problem: Low oxygen saturations initially Improved with oxygen Possibly secondary to pulmonary vascular congestion (2) Acute exacerbation of CHF (congestive heart failure) Current Visit: Yes Status: Acute Qualifiers: Heart failure type: combined systolic and diastolic Qualified Code(s): I50.43 - Acute on chronic combined systolic (congestive) and diastolic (congestive) heart failure Plan to address problem: We will get echocardiogram for ejection fraction Daily weights Daily intake output IV Lasix every 12 Cardiology consult (3) Coronary artery disease Current Visit: Yes Status: Chronic Qualifiers: Coronary Disease-Associated Artery/Lesion type: [place] artery [place] vs. transplanted heart: [place] heart Plan to address problem: Continue isosorbide (4) Hypokalemia Current Visit: Yes Status: Acute Plan to address problem: Potassium supplemented (5) Anemia Current Visit: Yes Status: Chronic Qualifiers: Anemia type: unspecified type Qualified Code(s): D64.9 - Anemia, unspecified Plan to address problem: Anemia work-up (6) Malnutrition Current Visit: Yes Status: Acute Qualifiers: Protein-calorie malnutrition severity: mild Plan to address problem: Medically supplements (7) DVT prophylaxis Current Visit: Yes Status: Acute Plan to address problem: On heparin and GI prophylaxis
[2020-08-23] MEDS ORDERED: POTASSIUM CHLORIDE ER 20 MEQ TAB PO NR (19:38)
[2020-08-23] MEDS ORDERED: ONDANSETRON 4 MG/2 ML INJ IV PRN (20:55)
[2020-08-23] MEDS ORDERED: ACETAMINOPHEN 325 MG TAB PO PRN (20:55)
[2020-08-23] MEDS ORDERED: METOCLOPRAMIDE 10 MG/2 ML INJ IV PRN (20:55)
[2020-08-23] MEDS ORDERED: MORPHINE 2 MG/1 ML INJ IV PRN (20:55)
[2020-08-23] MEDS ORDERED: NON-FORMULARY EACH (Brimonidine Tartrate [Alphagan P 0.1%] 10 ML Drops) OP SCH (21:00)
[2020-08-23] MEDS ORDERED: POTASSIUM CHLORIDE ER 10 MEQ TAB PO SCH (21:00)
[2020-08-23] MEDS ORDERED: BIMATOPROST OU SCH (21:00)
[2020-08-23] MEDS ORDERED: DORZOLAMIDE HCL OP SCH (21:00)
[2020-08-23] MEDS ORDERED: ENTRESTO PO SCH (22:00)
[2020-08-23] MEDS ORDERED: NON-FORMULARY EACH (Sacubitril/Valsartan [Entresto 97 Mg-103 Mg Tablet] 1 EACH Tablet) PO SCH (22:00)
[2020-08-23] MEDS: METOPROLOL TARTRATE 50 MG TAB PO SCH (22:16)
[2020-08-23] MEDS: TAMSULOSIN 0.4 MG CAP PO SCH (22:16)
[2020-08-23] MEDS: FAMOTIDINE 20 MG TAB PO SCH (22:17)
[2020-08-23] MEDS: hydrALAZINE 100 MG TAB PO SCH (22:17)
[2020-08-23] MEDS: CLOPIDOGREL 75 MG TAB PO SCH (22:45)
[2020-08-23] MEDS: POTASSIUM CHLORIDE ER 20 MEQ TAB PO SCH (23:50)
[2020-08-24 06:10] LABS: Basophils % (Auto) 0.7 % (0.0-1.8); Eosinophils # (Auto) 0.1 K/mm3 (0.0-0.4); Eosinophils % (Auto) 1.9 % (0.0-4.3); Hematocrit 34.9 % (35.5-45.6); Hemoglobin 11.7 gm/dl (11.8-15.2); Lymphocytes # (Auto) 1.2 K/mm3 (1.2-5.4); Mean Corpuscular HGB Conc 33 % (32-34); Mean Corpuscular Volume 99 fl (84-94); Monocytes # (Auto) 0.4 K/mm3 (0.0-0.8); Monocytes % (Auto) 11.4 % (0.0-7.3); Platelet Count 133 K/mm3 (140-440); Red Blood Count 3.52 M/mm3 (3.65-5.03); Red Cell Distribution Width 17.1 % (13.2-15.2)
[2020-08-24 06:35] LABS: Alanine Aminotransferase 12 units/L (7-56); Albumin 3.2 g/dL (3.9-5); BUN/Creatinine Ratio 15; Blood Urea Nitrogen 15 mg/dL (9-20); Calcium 8.6 mg/dL (8.4-10.2)
[2020-08-24] MEDS: FUROSEMIDE 40 MG/4 ML INJ IV SCH ×2 (07:38→22:01)
[2020-08-24] MEDS: SACUBITRIL/VALSARTAN 49-51 MG TAB PO SCH ×3 (08:16→22:02)
--- NOTE | 2020-08-24 09:13 | Electrocardiograph Report ---
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
--- NOTE | 2020-08-24 09:15 | Progress Note ---
Assessment and Plan Assessment and plan: 89-year-old -Iranian male with past medical history of heart failure who presents with acute on chronic heart failure exacerbation with respiratory failure and hypoxemia. Acute respiratory failure with hypoxia Current Visit: Yes Status: Acute Plan to address problem: Continue oxygen supplementation on 2 L Patient patient uses 2 L at home intermittently, has oxygen concentrator Attempted wean patient off of oxygen as tolerated Acute on chronic heart failure with preserved ejection fraction Current Visit: Yes Status: Acute Qualifiers: Heart failure type: combined systolic and diastolic Qualified Code(s): I50.43 - Acute on chronic combined systolic (congestive) and diastolic (congestive) heart failure Plan to address problem: Cardiology consulted Echocardiogram pending Lasix diuresis COPD Respiratory support Oxygen supplementation Breathing treatments as needed Coronary artery disease Current Visit: Yes Status: Chronic Coronary Disease-Associated Artery/Lesion type: [place] artery [place] vs. transplanted heart: [place] heart Plan to address problem: hx [facility] 04/2014 with POBA of mid LCX, BALWINDER to OM2, BALWINDER to distal RCA, BALWINDER to mid RCA, BALWINDER to prox RCA. Continue isosorbide Hypokalemia Current Visit: Yes Status: Acute Plan to address problem: Potassium supplemented Anemia of chronic disease Current Visit: Yes Status: Chronic Qualifiers: Anemia type: unspecified type Qualified Code(s): D64.9 - Anemia, unspecified Plan to address problem: Most likely anemia of chronic disease, no active bleeding Transfuse if hemoglobin falls below 7 Malnutrition Current Visit: Yes Status: Acute Qualifiers: Protein-calorie malnutrition severity: mild Plan to address problem: Dietary supplements DVT prophylaxis Current Visit: Yes Status: Acute Plan to address problem: On heparin and GI prophylaxis disposition: Pending echocardiogram, cardiology to make adjustments to medications as needed History Interval history: 08/24/2020: Patient seen and examined, eating breakfast, no acute distress, has 2 L of oxygen, complains of lower extremity swelling. Hospitalist Physical - Physical exam Narrative exam: General appearance: no acute distress, thin EENT: PERRL, EOM intact, hearing intact, clear oral mucosa, poor dentition Neck: Present: supple, normal ROM Respiratory: 2 L nasal cannula oxygen, bilateral CTA, negative: rales, rhonchi, wheezing Cardiovascular: Regular rate/rhythm, Normal S1 & S2. No gallop, rub Extremities: no ischemia, normal temperature, normal color, Full ROM, +2 pitting edema in lower extremities bilaterally Abdominal: soft, no tenderness, non-distended, normal bowel sounds Integumentary: Present: clear, warm, dry no wounds, no erythema noted Psychiatric: appropriate mood/affect, intact judgment & insight Neurologic: CNII-XII intact, moves all extremities, no sensory or motor abnormalities - Constitutional Vitals: Temp Pulse Resp BP Pulse Ox 98.0 F 67 18 159/93 94 08/24/20 08:00 08/24/20 08:00 08/24/20 08:00 08/24/20 08:00 08/24/20 09:01 General appearance: Present: mild distress, well-nourished HEART Score - HEART Score EKG: Significant ST-depression Age: > 65 Risk factors: > 3 risk factors or hx of atherosclerotic disease Troponin: Troponin T < 0.010 ng/mL (0.00-0.029) 08/23/20 11:55 Troponin: < normal limit Results - Labs CBC & Chem 7: 08/24/20 05:20 08/24/20 05:20 Labs: Laboratory Last Values WBC 3.7 K/mm3 (4.5-11.0) L 08/24/20 05:20 RBC 3.52 M/mm3 (3.65-5.03) L 08/24/20 05:20 Hgb 11.7 gm/dl (11.8-15.2) L 08/24/20 05:20 Hct 34.9 % (35.5-45.6) L 08/24/20 05:20 MCV 99 fl (84-94) H 08/24/20 05:20 MCH 33 pg (28-32) H 08/24/20 05:20 MCHC 33 % (32-34) 08/24/20 05:20 RDW 17.1 % (13.2-15.2) H 08/24/20 05:20 Plt Count 133 K/mm3 (140-440) L 08/24/20 05:20 Lymph % (Auto) 32.0 % (13.4-35.0) 08/24/20 05:20 [place] % (Auto) 11.4 % (0.0-7.3) H 08/24/20 05:20 Eos % (Auto) 1.9 % (0.0-4.3) 08/24/20 05:20 Baso % (Auto) 0.7 % (0.0-1.8) 08/24/20 05:20 Lymph # (Auto) 1.2 K/mm3 (1.2-5.4) 08/24/20 05:20 [place] # (Auto) 0.4 K/mm3 (0.0-0.8) 08/24/20 05:20 Eos # (Auto) 0.1 K/mm3 (0.0-0.4) 08/24/20 05:20 Baso # (Auto) 0.0 K/mm3 (0.0-0.1) 08/24/20 05:20 Add Manual Diff Complete 08/23/20 11:55 Total Counted 100 08/23/20 11:55 Seg Neutrophils % 54.0 % (40.0-70.0) 08/24/20 05:20 Seg Neuts % (Manual) 51.0 % (40.0-70.0) 08/23/20 11:55 Lymphocytes % (Manual) 41.0 % (13.4-35.0) H 08/23/20 11:55 Monocytes % (Manual) 5.0 % (0.0-7.3) 08/23/20 11:55 Eosinophils % (Manual) 1.0 % (0.0-4.3) 08/23/20 11:55 Metamyelocytes % 2.0 % 08/23/20 11:55 Nucleated RBC % Not Reportable 08/23/20 11:55 Seg Neutrophils # 2.0 K/mm3 (1.8-7.7) 08/24/20 05:20 Seg Neutrophils # Man 1.8 K/mm3 (1.8-7.7) 08/23/20 11:55 Band Neutrophils # 0.0 K/mm3 08/23/20 11:55 Lymphocytes # (Manual) 1.5 K/mm3 (1.2-5.4) 08/23/20 11:55 Abs React Lymphs (Man) 0.0 K/mm3 08/23/20 11:55 Monocytes # (Manual) 0.2 K/mm3 (0.0-0.8) 08/23/20 11:55 Eosinophils # (Manual) 0.0 K/mm3 (0.0-0.4) 08/23/20 11:55 Basophils # (Manual) 0.0 K/mm3 (0.0-0.1) 08/23/20 11:55 Metamyelocytes # 0.1 K/mm3 08/23/20 11:55 Myelocytes # 0.0 K/mm3 08/23/20 11:55 Promyelocytes # 0.0 K/mm3 08/23/20 11:55 Blast Cells # 0.0 K/mm3 08/23/20 11:55 WBC Morphology Not Reportable 08/23/20 11:55 Hypersegmented Neuts Not Reportable 08/23/20 11:55 Hyposegmented Neuts Not Reportable 08/23/20 11:55 Hypogranular Neuts Not Reportable 08/23/20 11:55 Smudge Cells Not Reportable 08/23/20 11:55 Toxic Granulation Not Reportable 08/23/20 11:55 Toxic Vacuolation Not Reportable 08/23/20 11:55 Dohle Bodies Not Reportable 08/23/20 11:55 Pelger-Huet Anomaly Not Reportable 08/23/20 11:55 Belkis Rods Not Reportable 08/23/20 11:55 Platelet Estimate Appears increased 08/23/20 11:55 Clumped Platelets Not Reportable 08/23/20 11:55 Plt Clumps, EDTA Not Reportable 08/23/20 11:55 Large Platelets Not Reportable 08/23/20 11:55 Giant Platelets Not Reportable 08/23/20 11:55 Platelet Satelliting Not Reportable 08/23/20 11:55 Plt Morphology Comment Not Reportable 08/23/20 11:55 RBC Morphology Not Reportable 08/23/20 11:55 Dimorphic RBCs Not Reportable 08/23/20 11:55 Polychromasia Not Reportable 08/23/20 11:55 Hypochromasia Not Reportable 08/23/20 11:55 Poikilocytosis Few 08/23/20 11:55 Anisocytosis Not Reportable 08/23/20 11:55 Microcytosis Not Reportable 08/23/20 11:55 Macrocytosis Not Reportable 08/23/20 11:55 Spherocytes Not Reportable 08/23/20 11:55 Pappenheimer Bodies Not Reportable 08/23/20 11:55 Sickle Cells Not Reportable 08/23/20 11:55 Target Cells Not Reportable 08/23/20 11:55 Tear Drop Cells Not Reportable 08/23/20 11:55 Ovalocytes Not Reportable 08/23/20 11:55 Helmet Cells Not Reportable 08/23/20 11:55 [place] Bodies Not Reportable 08/23/20 11:55 [place] Rings Not Reportable 08/23/20 11:55 [place] Cells Not Reportable 08/23/20 11:55 Bite Cells Not Reportable 08/23/20 11:55 Crenated Cell Not Reportable 08/23/20 11:55 Elliptocytes Not Reportable 08/23/20 11:55 Acanthocytes (Spur) 1+ 08/23/20 11:55 Rouleaux Not Reportable 08/23/20 11:55 Hemoglobin C Crystals Not Reportable 08/23/20 11:55 Schistocytes Not Reportable 08/23/20 11:55 Malaria parasites Not Reportable 08/23/20 11:55 Alvarez Bodies Not Reportable 08/23/20 11:55 Hem Pathologist Commnt No 08/23/20 11:55 Sodium 141 mmol/L (137-145) 08/24/20 05:20 Potassium 3.8 mmol/L (3.6-5.0) D 08/24/20 05:20 Chloride 106.6 mmol/L (98-107) 08/24/20 05:20 Carbon Dioxide 23 mmol/L (22-30) 08/24/20 05:20 Anion Gap 15 mmol/L 08/24/20 05:20 BUN 15 mg/dL (9-20) 08/24/20 05:20 Creatinine 1.0 mg/dL (0.8-1.3) 08/24/20 05:20 Estimated GFR > 60 ml/min 08/24/20 05:20 BUN/Creatinine Ratio 15 % 08/24/20 05:20 Glucose 103 mg/dL (75-100) H 08/24/20 05:20 Hemoglobin A1c 6.1 % (4-6) H 08/24/20 05:20 Calcium 8.6 mg/dL (8.4-10.2) 08/24/20 05:20 Total Bilirubin 1.00 mg/dL (0.1-1.2) 08/24/20 05:20 AST 16 units/L (5-40) 08/24/20 05:20 ALT 12 units/L (7-56) 08/24/20 05:20 Alkaline Phosphatase 106 units/L (35-129) 08/24/20 05:20 Troponin T < 0.010 ng/mL (0.00-0.029) 08/23/20 11:55 NT-Pro-B Natriuret Pep 57482 pg/mL (0-900) H 08/23/20 11:55 Total Protein 6.6 g/dL (6.3-8.2) 08/24/20 05:20 Albumin 3.2 g/dL (3.9-5) L 08/24/20 05:20 Albumin/Globulin Ratio 0.9 % 08/24/20 05:20 [place]gs/IV: Voiding Method Toilet Active Medications - Current Medications Current Medications: Generic Name Dose Route Start Last Admin Trade Name Freq PRN Reason Stop Dose Admin Acetaminophen 650 mg 08/23/20 20:55 Acetaminophen 325 Mg Tab PO Q4H PRN Pain MILD(1-3)/Fever >100.5/CAGLE Aspirin 81 mg 08/24/20 10:00 Aspirin Ec 81 Mg Tab PO DAILY [facility] Atorvastatin Calcium 40 mg 08/23/20 22:00 08/23/20 22:17 Atorvastatin 20 Mg Tab PO 40 mg QHS ROBI Administration Brimonidine Tartrate 1 drops 08/24/20 21:00 Brimonidine 0.15% Ophth Soln OU Q24H [facility] Clopidogrel Bisulfate 75 mg 08/23/20 21:00 08/23/20 22:45 Clopidogrel 75 Mg Tab PO 75 mg DAILY ROBI Administration Famotidine 20 mg 08/23/20 22:00 08/23/20 22:17 Famotidine 20 Mg Tab PO 20 mg BID ROBI Administration Furosemide 40 mg 08/24/20 06:00 08/24/20 07:38 Furosemide 40 Mg/4 Ml Inj IV 40 mg 0600,1800 ROBI Administration Heparin Sodium (Porcine) 5,000 unit 08/24/20 10:00 Heparin 5,000 Unit/1 Ml Vial SUB-Q Q12HR ROBI Hydralazine HCl 100 mg 08/23/20 22:00 08/23/20 22:17 Hydralazine 100 Mg Tab PO 100 mg BID ROBI Administration Isosorbide Mononitrate 30 mg 08/23/20 22:00 08/23/20 22:18 Isosorbide Mononitrate Er 30 Mg Tab PO 30 mg BID ROBI Administration Latanoprost 1 drops 08/24/20 21:00 Latanoprost 0.005% Ophth Soln 2.5 Ml OU Q24H [facility] Metoclopramide HCl 10 mg 08/23/20 20:55 Metoclopramide 10 Mg/2 Ml Inj IV Q6H PRN Nausea And Vomiting Metoprolol Tartrate 50 mg 08/23/20 22:00 08/23/20 22:16 Metoprolol Tartrate 50 Mg Tab PO 50 mg BID [facility] Administration Miscellaneous Medication 1 drop 08/23/20 21:00 Dorzolamide Hcl [Trusopt] OP Q24HR [facility] Morphine Sulfate 2 mg 08/23/20 20:55 Morphine 2 Mg/1 Ml Inj IV Q4H PRN Pain, Moderate (4-6) Ondansetron HCl 4 mg 08/23/20 20:55 Ondansetron 4 Mg/2 Ml Inj IV Q8H PRN Nausea And Vomiting Potassium Chloride 20 meq 08/23/20 22:00 08/23/20 23:50 Potassium Chloride Er 20 Meq Tab PO 20 meq BID ROBI Administration Sodium Chloride 10 ml 08/23/20 22:00 08/23/20 22:30 Sodium Chloride 0.9% 10 Ml Flush Syringe IV 10 ml BID ROBI Administration Sodium Chloride 10 ml 08/23/20 20:55 Sodium Chloride 0.9% 10 Ml Flush Syringe IV PRN PRN LINE FLUSH Tamsulosin HCl 0.4 mg 08/23/20 22:00 08/23/20 22:16 Tamsulosin 0.4 Mg Cap PO 0.4 mg QHS ROBI Administration
[2020-08-24] MEDS ORDERED: ALBUTEROL 2.5 MG/3 ML NEBU IH PRN (09:21)
--- NOTE | 2020-08-24 10:36 | Consultation ---
History of Present Illness Consult date: 08/24/20 Requesting physician: GENOVEVA NOVAK Consult reason: congestive heart failure History of present illness: Pt is an 89-year-old AA male with a hx of chronic HFrEF, ischemic CMP (EF improved to 40-45% on echo 05/2020), CAD s/p PCI (2014), COPD, HTN, and prior CVA, who presented with complaints of progressively worsening BLE edema. Pt also reports SOB and orthopnea. BNP > 14k at admission. CXR reveals pulmonary edema. Pt is feeling better s/p IV Lasix. Edema improving. Of note, pt takes 40mg Lasix daily at home and was recently instructed to start taking 40mg BID twice a week. Echo 06/06/2020 - EF 40-45%, grade II diastolic dyxfxn, RV mildly dilated, LA vol severely increased, AV mod calcified, mild AR, mod MR, mod TR, RVST 62.28mmHg, mild-mod DC. Lexiscan stress MPI 04/2017 - negative for ischemia. [facility] 04/2014 - LM patent, POBA of mid LCx, BALWINDER to OM2, BALWINDER to distal RCA, BALWINDER to mid RCA, BALWINDER to prox RCA, EF 40%. Past History Past Medical History: CAD, COPD, heart failure, hypertension, hyperlipidemia, stroke, other (carotid stenosis) Past Surgical History: PTCA. denies: valve replacement, CABG Social history: smoking (former). denies: alcohol abuse Medications and Allergies Allergies Allergy/AdvReac Type Severity Reaction Status Date / Time No Known Allergies Allergy Verified 12/23/14 18:25 Home Medications Medication Instructions Recorded Confirmed Last Taken Type Entresto 97 mg-103 mg Tablet 97 - 103 mg PO BID 07/16/16 08/23/20 Unknown History Bimatoprost 1 drop OU Q24HR 08/03/19 08/23/20 Unknown History Brimonidine Tartrate [Alphagan P 5 ml OP Q24HR 08/03/19 08/23/20 Unknown History 0.1%] Dorzolamide HCl [Trusopt] 1 drop OP Q24HR 08/03/19 08/23/20 Unknown History Aspirin EC [Halfprin EC] 81 mg PO DAILY #30 tablet 08/04/19 08/23/20 Unknown Rx Clopidogrel [Plavix] 75 mg PO DAILY #30 tablet 08/04/19 08/23/20 Unknown Rx Furosemide [Lasix TAB] 40 mg PO QDAY #30 08/04/19 08/23/20 Unknown Rx Metoprolol [Lopressor TAB] 50 mg PO BID #60 tablet 08/04/19 08/23/20 Unknown Rx Potassium Chloride [K-Dur] 20 meq PO QDAY #30 tablet 08/04/19 08/23/20 Unknown Rx Sacubitril/Valsartan [Entresto 97 1 each PO BID #60 08/04/19 08/23/20 Unknown Rx mg-103 mg Tablet] Tamsulosin [Flomax] 0.4 mg PO QHS #30 capsule 08/04/19 08/23/20 Unknown Rx AtorvaSTATin [Lipitor] 40 mg PO QHS 08/23/20 08/23/20 Unknown History ISOSORBIDE MONOnitrate [Imdur ER] 30 mg PO BID 08/23/20 08/23/20 Unknown History hydrALAZINE [Apresoline TAB] 100 mg PO BID 08/23/20 08/23/20 Unknown History Active Meds: Active Medications Acetaminophen (Acetaminophen 325 Mg Tab) 650 mg PO Q4H PRN PRN Reason: Pain MILD(1-3)/Fever >100.5/CAGLE Albuterol (Albuterol 2.5 Mg/3 Ml Nebu) 2.5 mg IH Q6HRT PRN PRN Reason: Shortness Of Breath Stop: 08/27/20 09:20 Aspirin (Aspirin Ec 81 Mg Tab) 81 mg PO DAILY [facility] Atorvastatin Calcium (Atorvastatin 20 Mg Tab) 40 mg PO QHS [facility] Last Admin: 08/23/20 22:17 Dose: 40 mg Documented by: Brimonidine Tartrate (Brimonidine 0.15% [facility]) 1 drops OU Q24H [facility] Clopidogrel Bisulfate (Clopidogrel 75 Mg Tab) 75 mg PO DAILY [facility] Last Admin: 08/23/20 22:45 Dose: 75 mg Documented by: Famotidine (Famotidine 20 Mg Tab) 20 mg PO BID [facility] Last Admin: 08/23/20 22:17 Dose: 20 mg Documented by: Furosemide (Furosemide 40 Mg/4 Ml Inj) 40 mg IV 0600,1800 [facility] Last Admin: 08/24/20 07:38 Dose: 40 mg Documented by: Heparin Sodium (Porcine) (Heparin 5,000 Unit/1 Ml Vial) 5,000 unit SUB-Q Q12HR [facility] Hydralazine HCl (Hydralazine 100 Mg Tab) 100 mg PO BID [facility] Last Admin: 08/23/20 22:17 Dose: 100 mg Documented by: Isosorbide Mononitrate (Isosorbide Mononitrate Er 30 Mg Tab) 30 mg PO BID [facility] Last Admin: 08/23/20 22:18 Dose: 30 mg Documented by: Latanoprost (Latanoprost 0.005% Ophth Soln 2.5 Ml) 1 drops OU Q24H [facility] Metoclopramide HCl (Metoclopramide 10 Mg/2 Ml Inj) 10 mg IV Q6H PRN PRN Reason: Nausea And Vomiting Metoprolol Tartrate (Metoprolol Tartrate 50 Mg Tab) 50 mg PO BID [facility] Last Admin: 08/23/20 22:16 Dose: 50 mg Documented by: Miscellaneous Medication (Dorzolamide Hcl [Trusopt]) 1 drop OP Q24HR [facility] Morphine Sulfate (Morphine 2 Mg/1 Ml Inj) 2 mg IV Q4H PRN PRN Reason: Pain, Moderate (4-6) Ondansetron HCl (Ondansetron 4 Mg/2 Ml Inj) 4 mg IV Q8H PRN PRN Reason: Nausea And Vomiting Potassium Chloride (Potassium Chloride Er 20 Meq Tab) 20 meq PO BID [facility] Last Admin: 08/23/20 23:50 Dose: 20 meq Documented by: Sodium Chloride (Sodium Chloride 0.9% 10 Ml Flush Syringe) 10 ml IV BID [facility] Last Admin: 08/23/20 22:30 Dose: 10 ml Documented by: Sodium Chloride (Sodium Chloride 0.9% 10 Ml Flush Syringe) 10 ml IV PRN PRN PRN Reason: LINE FLUSH Tamsulosin HCl (Tamsulosin 0.4 Mg Cap) 0.4 mg PO QHS [facility] Last Admin: 08/23/20 22:16 Dose: 0.4 mg Documented by: Review of Systems Constitutional: no fever, no chills Ears, nose, mouth and throat: no nasal congestion, no sore throat Cardiovascular: orthopnea, edema, shortness of breath, dyspnea on exertion, no chest pain, no palpitations, no syncope, no lightheadedness, no claudication Respiratory: shortness of breath, dyspnea on exertion, no cough Gastrointestinal: no abdominal pain, no nausea, no vomiting Genitourinary Male: no dysuria, no flank pain Musculoskeletal: no neck stiffness, no neck pain Integumentary: no rash, no wounds Neurological: weakness, no head injury, no numbness, no tingling, no seizures, no syncope, no vertigo, no headaches Endocrine: no cold intolerance, no heat intolerance, no polydipsia, no polyuria Hematologic/Lymphatic: no easy bruising, no easy bleeding Allergic/Immunologic: no anaphylaxis Physical Examination Last Vital Signs Temp 98.0 F 08/24/20 08:00 Pulse 67 08/24/20 08:00 Resp 18 08/24/20 08:00 BP 159/93 08/24/20 08:00 Pulse Ox 94 08/24/20 09:01 General appearance: no acute distress HEENT: Positive: EOMI, Normocephaly, Mucus Membranes Moist Neck: Positive: neck supple, trachea midline. Negative: JVD/HJR Cardiac: Positive: Reg Rate and Rhythm, S1/S2 Lungs: Positive: Decreased Breath Sounds (anteriorly) Neuro: Positive: Grossly Intact Abdomen: Positive: Soft. Negative: Tender Skin: Negative: Rash Musculoskeletal: No Pain Extremities: Present: upper extr. pulses, lower extr. pulses, edema (trace BLE) Results 08/24/20 05:20 08/24/20 05:20 Cardiac Enzymes 08/23/20 08/24/20 Range/Units 11:55 05:20 AST 17 16 (5-40) units/L CBC 08/23/20 08/24/20 Range/Units 11:55 05:20 WBC 3.6 L 3.7 L (4.5-11.0) K/mm3 RBC 3.53 L 3.52 L (3.65-5.03) M/mm3 Hgb 11.7 L 11.7 L (11.8-15.2) gm/dl Hct 35.0 L 34.9 L (35.5-45.6) % Plt Count 124 L 133 L (140-440) K/mm3 Lymph # (Auto) 1.2 (1.2-5.4) K/mm3 [place] # (Auto) 0.4 (0.0-0.8) K/mm3 Eos # (Auto) 0.1 (0.0-0.4) K/mm3 Baso # (Auto) 0.0 (0.0-0.1) K/mm3 Comprehensive Metabolic Panel 08/23/20 08/24/20 Range/Units 11:55 05:20 Sodium 137 141 (137-145) mmol/L Potassium 3.0 L 3.8 D (3.6-5.0) mmol/L Chloride 104.7 106.6 (98-107) mmol/L Carbon Dioxide 19 L 23 (22-30) mmol/L BUN 17 15 (9-20) mg/dL Creatinine 1.2 1.0 (0.8-1.3) mg/dL Glucose 127 H 103 H (75-100) mg/dL Calcium 8.7 8.6 (8.4-10.2) mg/dL AST 17 16 (5-40) units/L ALT 13 12 (7-56) units/L Alkaline Phosphatase 122 106 (35-129) units/L Total Protein 7.1 6.6 (6.3-8.2) g/dL Albumin 3.3 L 3.2 L (3.9-5) g/dL - Imaging and Cardiology Echo: report reviewed Cardiac cath: report reviewed EKG: report reviewed, image reviewed - EKG Interpretation EKG: no acute changes EKG interpretations - EKG Sinus rhythms and dysrhythmias: sinus rhythm Assessment and Plan Continue IV diuresis for now. Resume home cardiac regimen. Will optimize antihypertensive regimen as needed. Anticipate discharge in AM if stable. Plan of care d/w pt's daughter 'Aury' via phone. Pt seen in conjunction with Dr. Lyn, who agrees with the assessment and plan of care. - Patient Problems (1) Acute on chronic HFrEF (heart failure with reduced ejection fraction) Current Visit: Yes Status: Acute (2) Ischemic cardiomyopathy Current Visit: Yes Status: Chronic (3) COPD (chronic obstructive pulmonary disease) Current Visit: Yes Status: Chronic Qualifiers: Qualified Code(s): J44.9 - Chronic obstructive pulmonary disease, unspecified (4) Pulmonary HTN Current Visit: Yes Status: Chronic (5) CAD (coronary artery disease) Current Visit: Yes Status: Chronic (6) Stented coronary artery Current Visit: Yes Status: Chronic (7) Hypertension Current Visit: Yes Status: Chronic Qualifiers: Hypertension type: primary hypertension Qualified Code(s): I10 - Essential (primary) hypertension (8) Hyperlipidemia Current Visit: Yes Status: Chronic Qualifiers: Hyperlipidemia type: mixed hyperlipidemia Qualified Code(s): E78.2 - Mixed hyperlipidemia (9) Carotid stenosis Current Visit: Yes Status: Chronic (10) History of CVA (cerebrovascular accident) Current Visit: Yes Status: Chronic
[2020-08-24] MEDS: hydrALAZINE 100 MG TAB PO SCH ×2 (12:45→22:01)
[2020-08-24] MEDS: ASPIRIN EC 81 MG TAB PO SCH (12:46)
[2020-08-24] MEDS: POTASSIUM CHLORIDE ER 20 MEQ TAB PO SCH ×2 (12:47→22:05)
[2020-08-24] MEDS: METOPROLOL TARTRATE 50 MG TAB PO SCH ×2 (12:47→22:05)
[2020-08-24] MEDS: HEPARIN 5,000 UNIT/1 ML VIAL SUB-Q SCH ×2 (12:47→22:00)
[2020-08-24] MEDS: CLOPIDOGREL 75 MG TAB PO SCH (12:48)
[2020-08-24] MEDS: FAMOTIDINE 20 MG TAB PO SCH ×2 (12:48→22:01)
[2020-08-24] MEDS ORDERED: LATANOPROST 0.005% OPHTH SOLN 2.5 ML OU SCH (22:00)
[2020-08-24] MEDS: LATANOPROST 0.005% OPHTH SOLN 2.5 ML OU SCH (22:01)
[2020-08-24] MEDS: TAMSULOSIN 0.4 MG CAP PO SCH (22:01)
[2020-08-24] MEDS: BRIMONIDINE 0.15% OPHTH SOLN OU SCH (22:44)
[2020-08-25] MEDS ORDERED: hydrALAZINE 20 MG/1 ML INJ IV PRN (00:05)
[2020-08-25] MEDS: FUROSEMIDE 40 MG/4 ML INJ IV SCH ×2 (05:28→21:27)
[2020-08-25 05:37] LABS: BUN/Creatinine Ratio 16; Blood Urea Nitrogen 16 mg/dL (9-20); Calcium 8.1 mg/dL (8.4-10.2); Hemolysis Index 7
--- NOTE | 2020-08-25 09:55 | Progress Note ---
Assessment and Plan Continue IV diuresis for now. Plan to transition to PO Lasix 40mg daily in AM. Will optimize antihypertensive regimen. Increase Hydralazine to 100mg TID. Otherwise stable cardiac status. Anticipate discharge in AM if stable. Follow-up with Dr. Lyn in our [place] office on 09/21/2020 @ 10am ([phone]). Plan of care d/w pt's daughter 'Aury' via phone. Pt seen in conjunction with Dr. Lyn, who agrees with the assessment and plan of care. - Patient Problems (1) Acute on chronic HFrEF (heart failure with reduced ejection fraction) Current Visit: Yes Status: Acute (2) Ischemic cardiomyopathy Current Visit: Yes Status: Chronic (3) Mitral regurgitation Current Visit: Yes Status: Chronic (4) Pulmonary HTN Current Visit: Yes Status: Chronic (5) COPD (chronic obstructive pulmonary disease) Current Visit: Yes Status: Chronic Qualifiers: Qualified Code(s): J44.9 - Chronic obstructive pulmonary disease, unspecified (6) CAD (coronary artery disease) Current Visit: Yes Status: Chronic (7) Stented coronary artery Current Visit: Yes Status: Chronic (8) Hypertension Current Visit: Yes Status: Chronic Qualifiers: Hypertension type: primary hypertension Qualified Code(s): I10 - Essential (primary) hypertension (9) Hyperlipidemia Current Visit: Yes Status: Chronic Qualifiers: Hyperlipidemia type: mixed hyperlipidemia Qualified Code(s): E78.2 - Mixed hyperlipidemia (10) Carotid stenosis Current Visit: Yes Status: Chronic (11) History of CVA (cerebrovascular accident) Current Visit: Yes Status: Chronic Subjective Date of service: 08/25/20 Principal diagnosis: A/C HFrEF Interval history: Still somewhat SOB. C/o cough this AM. Tele reviewed - SR 70s, no events overnight. Objective Last Vital Signs Temp 97.9 F 08/25/20 07:41 Pulse 70 08/25/20 07:41 Resp 18 08/25/20 07:41 BP 171/84 08/25/20 07:41 Pulse Ox 92 08/25/20 07:41 - Physical Examination General: No Apparent Distress HEENT: Positive: EOMI, Normocephaly, Mucus Membranes Moist Neck: Positive: neck supple, trachea midline. Negative: JVD/HJR Cardiac: Positive: Reg Rate and Rhythm, S1/S2 Lungs: Positive: Decreased Breath Sounds Neuro: Positive: Grossly Intact Abdomen: Positive: Soft. Negative: Tender Skin: Negative: Rash Musculoskeletal: No Pain Extremities: Present: upper extr. pulses, lower extr. pulses, edema (trace BLE) - Labs and Meds Comprehensive Metabolic Panel 08/25/20 Range/Units 03:43 Sodium 140 (137-145) mmol/L Potassium 3.5 L (3.6-5.0) mmol/L Chloride 106.4 (98-107) mmol/L Carbon Dioxide 20 L (22-30) mmol/L BUN 16 (9-20) mg/dL Creatinine 1.0 (0.8-1.3) mg/dL Glucose 95 (75-100) mg/dL Calcium 8.1 L (8.4-10.2) mg/dL - Imaging and Cardiology EKG: report reviewed, image reviewed Pharmacologic stress test: report reviewed (04/2017 - negative for ischemia) Echo: report reviewed (08/24/2020 - EF 30-35%, mild diastolic dysfxn, mild-mod LVH, RV mild-mod dilated, RV mildly hypokinetic, mod-severe MR, mild AR, mild- mod TR, RVSP 64mmHg, mild [place]), other (05/2020 - EF 40-45%, grade II diastolic dyxfxn, RV mildly dilated, LA vol severely increased, AV mod calcified, mild AR, mod MR, mod TR, RVST 62.28mmHg, mild-mod [place]) Cardiac cath: report reviewed (04/2014 - LM patent, POBA of mid LCx, BALWINDER to OM2, BALWINDER to distal RCA, BALWINDER to mid RCA, BALWINDER to prox RCA, EF 40%) - Telemetry EKG Rhythm: Sinus Rhythm - EKG Sinus rhythms and dysrhythmias: sinus rhythm
[2020-08-25] MEDS: SACUBITRIL/VALSARTAN 49-51 MG TAB PO SCH ×2 (11:11→21:23)
[2020-08-25] MEDS: ASPIRIN EC 81 MG TAB PO SCH (11:11)
[2020-08-25] MEDS: POTASSIUM CHLORIDE ER 20 MEQ TAB PO SCH ×2 (11:11→21:22)
[2020-08-25] MEDS: SPIRONOLACTONE 25 MG TAB PO SCH (11:11)
[2020-08-25] MEDS: FAMOTIDINE 20 MG TAB PO SCH ×2 (11:11→21:22)
[2020-08-25] MEDS: HEPARIN 5,000 UNIT/1 ML VIAL SUB-Q SCH ×2 (11:12→21:24)
[2020-08-25] MEDS: CLOPIDOGREL 75 MG TAB PO SCH (11:12)
[2020-08-25] MEDS: METOPROLOL TARTRATE 50 MG TAB PO SCH ×2 (11:12→21:22)
--- NOTE | 2020-08-25 14:18 | Progress Note ---
Assessment and Plan Assessment and plan: 89-year-old -Faroese male with past medical history of heart failure who presents with acute on chronic heart failure exacerbation with respiratory failure and hypoxemia. 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 Moderate to severe mitral regurgitation. Mild aortic regurgitation. Mild to moderate tricuspid regurgitation. Moderate pulmonary hypertension. COPD Respiratory support Oxygen supplementation Breathing treatments as needed Coronary artery disease Current Visit: Yes Status: Chronic Coronary Disease-Associated Artery/Lesion type: [place] artery [place] vs. transplanted heart: makah heart Plan to address problem: hx [facility] 04/2014 with POBA of mid LCX, BALWINDER to OM2, BALWINDER to distal RCA, BALWINDER to mid RCA, BALWINDER to prox RCA. Continue isosorbide Hypokalemia Current Visit: Yes Status: Acute Plan to address problem: Potassium supplemented Anemia of chronic disease Current Visit: Yes Status: Chronic Qualifiers: Anemia type: unspecified type Qualified Code(s): D64.9 - Anemia, unspecified Plan to address problem: Most likely anemia of chronic disease, no active bleeding Transfuse if hemoglobin falls below 7 Malnutrition Current Visit: Yes Status: Acute Qualifiers: Protein-calorie malnutrition severity: mild Plan to address problem: Dietary supplements DVT prophylaxis Current Visit: Yes Status: Acute Plan to address problem: On heparin and GI prophylaxis disposition: Continue diuresis per cardiology, anticipate discharge within the next 24 hours. History Interval history: 08/24/2020: Patient seen and examined, eating breakfast, no acute distress, has 2 L of oxygen, complains of lower extremity swelling. 08/25/2020: Patient seen and examined, breathing is improved. Continues to be on 2 L oxygen. Hospitalist Physical - Physical exam Narrative exam: General appearance: no acute distress, thin EENT: PERRL, EOM intact, hearing intact, clear oral mucosa, poor dentition Neck: Present: supple, normal ROM Respiratory: 2 L nasal cannula oxygen, minimal rales in lower lung [place] bilaterally Cardiovascular: Regular rate/rhythm, Normal S1 & S2. No gallop, rub Extremities: no ischemia, normal temperature, normal color, Full ROM, +1 pitting edema in lower extremities bilaterally Abdominal: soft, no tenderness, non-distended, normal bowel sounds Integumentary: Present: clear, warm, dry no wounds, no erythema noted Psychiatric: appropriate mood/affect, intact judgment & insight Neurologic: CNII-XII intact, moves all extremities, no sensory or motor abnormalities - Constitutional Vitals: Temp Pulse Resp BP Pulse Ox 97.9 F 78 18 161/85 92 08/25/20 11:17 08/25/20 11:17 08/25/20 11:17 08/25/20 11:17 08/25/20 11:17 HEART Score - HEART Score EKG: Significant ST-depression Age: > 65 Risk factors: > 3 risk factors or hx of atherosclerotic disease Troponin: Troponin T < 0.010 ng/mL (0.00-0.029) 08/23/20 11:55 Troponin: < normal limit Results - Labs CBC & Chem 7: 08/24/20 05:20 08/25/20 03:43 Labs: Laboratory Last Values WBC 3.7 K/mm3 (4.5-11.0) L 08/24/20 05:20 RBC 3.52 M/mm3 (3.65-5.03) L 08/24/20 05:20 Hgb 11.7 gm/dl (11.8-15.2) L 08/24/20 05:20 Hct 34.9 % (35.5-45.6) L 08/24/20 05:20 MCV 99 fl (84-94) H 08/24/20 05:20 MCH 33 pg (28-32) H 08/24/20 05:20 MCHC 33 % (32-34) 08/24/20 05:20 RDW 17.1 % (13.2-15.2) H 08/24/20 05:20 Plt Count 133 K/mm3 (140-440) L 08/24/20 05:20 Lymph % (Auto) 32.0 % (13.4-35.0) 08/24/20 05:20 [place] % (Auto) 11.4 % (0.0-7.3) H 08/24/20 05:20 Eos % (Auto) 1.9 % (0.0-4.3) 08/24/20 05:20 Baso % (Auto) 0.7 % (0.0-1.8) 08/24/20 05:20 Lymph # (Auto) 1.2 K/mm3 (1.2-5.4) 08/24/20 05:20 [place] # (Auto) 0.4 K/mm3 (0.0-0.8) 08/24/20 05:20 Eos # (Auto) 0.1 K/mm3 (0.0-0.4) 08/24/20 05:20 Baso # (Auto) 0.0 K/mm3 (0.0-0.1) 08/24/20 05:20 Add Manual Diff Complete 08/23/20 11:55 Total Counted 100 08/23/20 11:55 Seg Neutrophils % 54.0 % (40.0-70.0) 08/24/20 05:20 Seg Neuts % (Manual) 51.0 % (40.0-70.0) 08/23/20 11:55 Lymphocytes % (Manual) 41.0 % (13.4-35.0) H 08/23/20 11:55 Monocytes % (Manual) 5.0 % (0.0-7.3) 08/23/20 11:55 Eosinophils % (Manual) 1.0 % (0.0-4.3) 08/23/20 11:55 Metamyelocytes % 2.0 % 08/23/20 11:55 Nucleated RBC % Not Reportable 08/23/20 11:55 Seg Neutrophils # 2.0 K/mm3 (1.8-7.7) 08/24/20 05:20 Seg Neutrophils # Man 1.8 K/mm3 (1.8-7.7) 08/23/20 11:55 Band Neutrophils # 0.0 K/mm3 08/23/20 11:55 Lymphocytes # (Manual) 1.5 K/mm3 (1.2-5.4) 08/23/20 11:55 Abs React Lymphs (Man) 0.0 K/mm3 08/23/20 11:55 Monocytes # (Manual) 0.2 K/mm3 (0.0-0.8) 08/23/20 11:55 Eosinophils # (Manual) 0.0 K/mm3 (0.0-0.4) 08/23/20 11:55 Basophils # (Manual) 0.0 K/mm3 (0.0-0.1) 08/23/20 11:55 Metamyelocytes # 0.1 K/mm3 08/23/20 11:55 Myelocytes # 0.0 K/mm3 08/23/20 11:55 Promyelocytes # 0.0 K/mm3 08/23/20 11:55 Blast Cells # 0.0 K/mm3 08/23/20 11:55 WBC Morphology Not Reportable 08/23/20 11:55 Hypersegmented Neuts Not Reportable 08/23/20 11:55 Hyposegmented Neuts Not Reportable 08/23/20 11:55 Hypogranular Neuts Not Reportable 08/23/20 11:55 Smudge Cells Not Reportable 08/23/20 11:55 Toxic Granulation Not Reportable 08/23/20 11:55 Toxic Vacuolation Not Reportable 08/23/20 11:55 Dohle Bodies Not Reportable 08/23/20 11:55 Pelger-Huet Anomaly Not Reportable 08/23/20 11:55 Belkis Rods Not Reportable 08/23/20 11:55 Platelet Estimate Appears increased 08/23/20 11:55 Clumped Platelets Not Reportable 08/23/20 11:55 Plt Clumps, EDTA Not Reportable 08/23/20 11:55 Large Platelets Not Reportable 08/23/20 11:55 Giant Platelets Not Reportable 08/23/20 11:55 Platelet Satelliting Not Reportable 08/23/20 11:55 Plt Morphology Comment Not Reportable 08/23/20 11:55 RBC Morphology Not Reportable 08/23/20 11:55 Dimorphic RBCs Not Reportable 08/23/20 11:55 Polychromasia Not Reportable 08/23/20 11:55 Hypochromasia Not Reportable 08/23/20 11:55 Poikilocytosis Few 08/23/20 11:55 Anisocytosis Not Reportable 08/23/20 11:55 Microcytosis Not Reportable 08/23/20 11:55 Macrocytosis Not Reportable 08/23/20 11:55 Spherocytes Not Reportable 08/23/20 11:55 Pappenheimer Bodies Not Reportable 08/23/20 11:55 Sickle Cells Not Reportable 08/23/20 11:55 Target Cells Not Reportable 08/23/20 11:55 Tear Drop Cells Not Reportable 08/23/20 11:55 Ovalocytes Not Reportable 08/23/20 11:55 Helmet Cells Not Reportable 08/23/20 11:55 [place] Bodies Not Reportable 08/23/20 11:55 [place] Rings Not Reportable 08/23/20 11:55 Felt Cells Not Reportable 08/23/20 11:55 Bite Cells Not Reportable 08/23/20 11:55 Crenated Cell Not Reportable 08/23/20 11:55 Elliptocytes Not Reportable 08/23/20 11:55 Acanthocytes (Spur) 1+ 08/23/20 11:55 Rouleaux Not Reportable 08/23/20 11:55 Hemoglobin C Crystals Not Reportable 08/23/20 11:55 Schistocytes Not Reportable 08/23/20 11:55 Malaria parasites Not Reportable 08/23/20 11:55 Alvarez Bodies Not Reportable 08/23/20 11:55 Hem Pathologist Commnt No 08/23/20 11:55 Sodium 140 mmol/L (137-145) 08/25/20 03:43 Potassium 3.5 mmol/L (3.6-5.0) L 08/25/20 03:43 Chloride 106.4 mmol/L (98-107) 08/25/20 03:43 Carbon Dioxide 20 mmol/L (22-30) L 08/25/20 03:43 Anion Gap 17 mmol/L 08/25/20 03:43 BUN 16 mg/dL (9-20) 08/25/20 03:43 Creatinine 1.0 mg/dL (0.8-1.3) 08/25/20 03:43 Estimated GFR > 60 ml/min 08/25/20 03:43 BUN/Creatinine Ratio 16 % 08/25/20 03:43 Glucose 95 mg/dL (75-100) 08/25/20 03:43 Hemoglobin A1c 6.1 % (4-6) H 08/24/20 05:20 Calcium 8.1 mg/dL (8.4-10.2) L 08/25/20 03:43 Total Bilirubin 1.00 mg/dL (0.1-1.2) 08/24/20 05:20 AST 16 units/L (5-40) 08/24/20 05:20 ALT 12 units/L (7-56) 08/24/20 05:20 Alkaline Phosphatase 106 units/L (35-129) 08/24/20 05:20 Troponin T < 0.010 ng/mL (0.00-0.029) 08/23/20 11:55 NT-Pro-B Natriuret Pep 31442 pg/mL (0-900) H 08/23/20 11:55 Total Protein 6.6 g/dL (6.3-8.2) 08/24/20 05:20 Albumin 3.2 g/dL (3.9-5) L 08/24/20 05:20 Albumin/Globulin Ratio 0.9 % 08/24/20 05:20 [place]gs/IV: Voiding Method Urinal Active Medications - Current Medications Current Medications: Generic Name Dose Route Start Last Admin Trade Name Freq PRN Reason Stop Dose Admin Acetaminophen 650 mg 08/23/20 20:55 Acetaminophen 325 Mg Tab PO Q4H PRN Pain MILD(1-3)/Fever >100.5/CAGLE Albuterol 2.5 mg 08/24/20 09:21 Albuterol 2.5 Mg/3 Ml Nebu IH 08/27/20 09:20 Q6HRT PRN Shortness Of Breath Aspirin 81 mg 08/24/20 10:00 08/25/20 11:11 Aspirin Ec 81 Mg Tab PO 81 mg DAILY ROBI Administration Atorvastatin Calcium 40 mg 08/23/20 22:00 08/24/20 22:02 Atorvastatin 20 Mg Tab PO 40 mg QHS ROBI Administration Brimonidine Tartrate 1 drops 08/24/20 21:00 08/24/20 22:44 Brimonidine 0.15% Ophth Soln OU 1 drops Q24H ROBI Administration Clopidogrel Bisulfate 75 mg 08/23/20 21:00 08/25/20 11:12 Clopidogrel 75 Mg Tab PO 75 mg DAILY ROBI Administration Famotidine 20 mg 08/23/20 22:00 08/25/20 11:11 Famotidine 20 Mg Tab PO 20 mg BID ROBI Administration Furosemide 40 mg 08/24/20 06:00 08/25/20 05:28 Furosemide 40 Mg/4 Ml Inj IV 40 mg 0600,1800 ROBI Administration Heparin Sodium (Porcine) 5,000 unit 08/24/20 10:00 08/25/20 11:12 Heparin 5,000 Unit/1 Ml Vial SUB-Q 5,000 unit Q12HR ROBI Administration Hydralazine HCl 10 mg 08/25/20 00:05 08/25/20 00:35 Hydralazine 20 Mg/1 Ml Inj IV 10 mg Q6H PRN Administration SBP >/=165; DBP >/=100 Hydralazine HCl 100 mg 08/25/20 14:00 Hydralazine 100 Mg Tab PO TID ROBI Isosorbide Mononitrate 30 mg 08/23/20 22:00 08/25/20 11:11 Isosorbide Mononitrate Er 30 Mg Tab PO 30 mg BID ROBI Administration Latanoprost 1 drops 08/24/20 21:00 08/24/20 22:01 Latanoprost 0.005% Ophth Soln 2.5 Ml OU 1 drops Q24H ROBI Administration Metoclopramide HCl 10 mg 08/23/20 20:55 Metoclopramide 10 Mg/2 Ml Inj IV Q6H PRN Nausea And Vomiting Metoprolol Tartrate 50 mg 08/23/20 22:00 08/25/20 11:12 Metoprolol Tartrate 50 Mg Tab PO 50 mg BID ROBI Administration Miscellaneous Medication 1 drop 08/23/20 21:00 Dorzolamide Hcl [Trusopt] OP Q24HR [facility] Morphine Sulfate 2 mg 08/23/20 20:55 Morphine 2 Mg/1 Ml Inj IV Q4H PRN Pain, Moderate (4-6) Ondansetron HCl 4 mg 08/23/20 20:55 Ondansetron 4 Mg/2 Ml Inj IV Q8H PRN Nausea And Vomiting Potassium Chloride 20 meq 08/23/20 22:00 08/25/20 11:11 Potassium Chloride Er 20 Meq Tab PO 20 meq BID ROBI Administration Sodium Chloride 10 ml 08/23/20 22:00 08/25/20 11:12 Sodium Chloride 0.9% 10 Ml Flush Syringe IV 10 ml BID ROBI Administration Sodium Chloride 10 ml 08/23/20 20:55 Sodium Chloride 0.9% 10 Ml Flush Syringe IV PRN PRN LINE FLUSH Spironolactone 25 mg 08/25/20 10:00 08/25/20 11:11 Spironolactone 25 Mg Tab PO 25 mg QDAY ROBI Administration Tamsulosin HCl 0.4 mg 08/23/20 22:00 08/24/20 22:01 Tamsulosin 0.4 Mg Cap PO 0.4 mg QHS ROBI Administration Nutrition/Malnutrition Assess - Dietary Evaluation Nutrition/Malnutrition Findings: Nutrition Notes Start: 08/24/20 11:30 Freq: Status: Active Protocol: Document 08/25/20 13:01 LEONARDO (Rec: 08/25/20 13:03 LEONARDO [id number]) Nutrition Notes Initial or Follow up Brief Note Current Diagnosis Coronary Artery Disease, Hypertension,Heart Failure, Stroke Other Pertinent Diagnosis BPH Current Diet Cardiac Subjective/Other Information FU for assessment. Pt eating 100% of meals. Nutrition Intervention Revisit per MD consult or patient Sign Off request:
[2020-08-25] MEDS: hydrALAZINE 100 MG TAB PO SCH ×2 (16:26→21:22)
[2020-08-25] MEDS: BRIMONIDINE 0.15% OPHTH SOLN OU SCH (21:21)
[2020-08-25] MEDS: TAMSULOSIN 0.4 MG CAP PO SCH (21:22)
[2020-08-25] MEDS: LATANOPROST 0.005% OPHTH SOLN 2.5 ML OU SCH (21:22)
[2020-08-26] MEDS: FUROSEMIDE 40 MG/4 ML INJ IV SCH (06:05)
[2020-08-26 06:18] LABS: BUN/Creatinine Ratio 14; Blood Urea Nitrogen 17 mg/dL (9-20); Calcium 8.5 mg/dL (8.4-10.2); Hemolysis Index 0
[2020-08-26] MEDS ORDERED: POTASSIUM CHLORIDE ER 20 MEQ TAB PO ONE (07:20)
[2020-08-26 07:46] VITALS: BP 166/92
--- NOTE | 2020-08-26 09:04 | Progress Note ---
Assessment and Plan 89-year-old male with ischemic cardiomyopathy COPD moderate severe mitral regurgitation EF 30 to 35% decrease from 40 - 45%, patient came in with hypertensive urgency increase hydralazine to 100 mg 3 times a day continue home medications patient is not currently compensated heart failure. Patient no longer in acute respiratory failure. Patient has lost 4 pounds. Has trace edema. No more PND. May be discharged from cardiovascular point of view replace potassium. Follow-up in the office in 1 week - Patient Problems (1) Acute on chronic HFrEF (heart failure with reduced ejection fraction) Current Visit: Yes Status: Acute (2) Acute respiratory failure with hypoxia Current Visit: Yes Status: Acute (3) Acute systolic heart failure Current Visit: Yes Status: Acute (4) Hypertensive urgency Current Visit: Yes Status: Acute (5) Hypokalemia Current Visit: Yes Status: Acute (6) CAD (coronary artery disease) Current Visit: Yes Status: Chronic Qualifiers: Coronary Disease-Associated Artery/Lesion type: sam[place] artery [place] vs. transplanted heart: samish heart Associated angina: without angina Qualified Code(s): I25.10 - Atherosclerotic heart disease of samish coronary artery without angina pectoris (7) COPD (chronic obstructive pulmonary disease) Current Visit: Yes Status: Chronic Qualifiers: Qualified Code(s): J44.9 - Chronic obstructive pulmonary disease, unspecified (8) Carotid stenosis Current Visit: Yes Status: Chronic Qualifiers: Laterality: bilateral Qualified Code(s): I65.23 - Occlusion and stenosis of bilateral carotid arteries (9) Hyperlipidemia Current Visit: Yes Status: Chronic Qualifiers: Hyperlipidemia type: mixed hyperlipidemia Qualified Code(s): E78.2 - Mixed hyperlipidemia (10) Hypertension Current Visit: Yes Status: Chronic Qualifiers: Hypertension type: primary hypertension Qualified Code(s): I10 - Essential (primary) hypertension (11) Ischemic cardiomyopathy Current Visit: Yes Status: Chronic Subjective Date of service: 08/26/20 Principal diagnosis: A/C HFrEF Interval history: sob has improved and lying flat Objective Vital Signs Temp Pulse Resp BP Pulse Ox 08/26/20 08:20 97 08/26/20 07:21 98.0 F 70 18 166/92 93 08/26/20 04:00 60 08/26/20 03:46 96 08/26/20 03:45 97.9 F 63 19 143/75 89 08/25/20 23:55 61 08/25/20 23:22 97.9 F 63 17 125/57 96 08/25/20 21:22 88 139/76 08/25/20 20:00 60 08/25/20 19:38 98.1 F 62 16 159/87 95 08/25/20 15:38 97.9 F 72 18 159/90 92 08/25/20 11:17 97.9 F 78 18 161/85 92 08/25/20 10:00 66 99 - Physical Examination General: No Apparent Distress HEENT: Positive: EOMI, Normocephaly, Mucus Membranes Moist Neck: Positive: neck supple, trachea midline. Negative: JVD/HJR Cardiac: Positive: Reg Rate and Rhythm Lungs: Positive: clear to auscultation Neuro: Positive: Grossly Intact Abdomen: Positive: Soft. Negative: Tender Skin: Negative: Rash Musculoskeletal: No Pain Extremities: Present: upper extr. pulses, lower extr. pulses, edema (trace) - Labs and Meds Comprehensive Metabolic Panel 08/26/20 Range/Units 04:25 Sodium 141 (137-145) mmol/L Potassium 3.4 L (3.6-5.0) mmol/L Chloride 105.4 (98-107) mmol/L Carbon Dioxide 25 (22-30) mmol/L BUN 17 (9-20) mg/dL Creatinine 1.2 (0.8-1.3) mg/dL Glucose 99 (75-100) mg/dL Calcium 8.5 (8.4-10.2) mg/dL - Imaging and Cardiology EKG: report reviewed, image reviewed Echo: report reviewed (08/24/2020 - EF 30-35%, mild diastolic dysfxn, mild-mod LVH, RV mild-mod dilated, RV mildly hypokinetic, mod-severe MR, mild AR, mild- mod TR, RVSP 64mmHg, mild TN), other (05/2020 - EF 40-45%, grade II diastolic dyxfxn, RV mildly dilated, LA vol severely increased, AV mod calcified, mild AR, mod MR, mod TR, RVST 62.28mmHg, mild-mod TN) Cardiac cath: report reviewed (04/2014 - LM patent, POBA of mid LCx, BALWINDER to OM2, BALWINDER to distal RCA, BALWINDER to mid RCA, BALWINDER to prox RCA, EF 40%) - Telemetry EKG Rhythm: Sinus Rhythm - EKG Sinus rhythms and dysrhythmias: sinus rhythm
--- NOTE | 2020-08-26 09:29 | Discharge Summary ---
Providers - Providers Date of Admission: 08/24/20 15:37 Date of discharge: 08/26/20 Attending physician: FRED WYMAN MD 08/23/20 15:29 Physical Therapy Evaluation and Treat [CONS] Routine Comment: Reason For Exam: debility 08/23/20 15:30 Occupational Therapy Evaluate and Treat [CONS] Routine Comment: Reason For Exam: right arm weakness 08/23/20 20:55 Consult to Physician [CONS] Routine Comment: Consulting Provider: LIBRADO BAKER Physician Instructions: Reason For Exam: chf exacerbation Hospitalization Reason for admission: Acute on chronic systolic heart failure Condition: Stable Hospital course: 89-year-old -Tongan male with past medical history of heart failure who presents with acute on chronic heart failure exacerbation with respiratory failure and hypoxemia. 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 Moderate to severe mitral regurgitation. Mild aortic regurgitation. Mild to moderate tricuspid regurgitation. Moderate pulmonary hypertension. COPD Respiratory support Oxygen supplementation Breathing treatments as needed Coronary artery disease Current Visit: Yes Status: Chronic Coronary Disease-Associated Artery/Lesion type: [place] artery [place] vs. transplanted heart: [place] heart Plan to address problem: hx [facility] 04/2014 with POBA of mid LCX, BALWINDER to OM2, BALWINDER to distal RCA, BALWINDER to mid RCA, BALWINDER to prox RCA. Continue isosorbide Hypokalemia Current Visit: Yes Status: Acute Plan to address problem: Potassium supplemented Anemia of chronic disease Current Visit: Yes Status: Chronic Qualifiers: Anemia type: unspecified type Qualified Code(s): D64.9 - Anemia, unspecified Plan to address problem: Most likely anemia of chronic disease, no active bleeding Transfuse if hemoglobin falls below 7 Malnutrition Current Visit: Yes Status: Acute Qualifiers: Protein-calorie malnutrition severity: mild Plan to address problem: Dietary supplements DVT prophylaxis Current Visit: Yes Status: Acute Plan to address problem: On heparin and GI prophylaxis History Interval history: 08/24/2020: Patient seen and examined, eating breakfast, no acute distress, has 2 L of oxygen, complains of lower extremity swelling. 08/25/2020: Patient seen and examined, breathing is improved. Continues to be on 2 L oxygen. 08/26/2020: Patient seen and examined, breathing is at baseline, off nasal cannula oxygen. Cardiology states patient is stable for discharge after repletion of potassium. Disposition: DC-01 TO HOME OR SELFCARE Final Discharge Diagnosis (Prints w/discharge instructions): Acute respiratory failure with hypoxemia. Acute on chronic systolic and diastolic heart failure with reduced ejection fraction. COPD exacerbation. Coronary artery disease. Hypokalemia. Anemia of chronic disease. Malnutrition Time spent for discharge: 35 minutes Core Measure Documentation - Palliative Care Palliative Care/ Comfort Measures: Not Applicable - Core Measures Any of the following diagnoses?: none Exam - Physical Exam Narrative exam: General appearance: no acute distress, thin EENT: PERRL, EOM intact, hearing intact, clear oral mucosa, poor dentition Neck: Present: supple, normal ROM Respiratory: room air, lungs clear to auscultation bilaterally, no rales or rhonchi heard minimal Cardiovascular: Regular rate/rhythm, Normal S1 & S2. No gallop, rub Extremities: no ischemia, normal temperature, normal color, Full ROM, +1 pitting edema in lower extremities bilaterally Abdominal: soft, no tenderness, non-distended, normal bowel sounds Integumentary: Present: clear, warm, dry no wounds, no erythema noted Psychiatric: appropriate mood/affect, intact judgment & insight Neurologic: CNII-XII intact, moves all extremities, no sensory or motor abnormalities - Constitutional Vitals: Temp Pulse Resp BP Pulse Ox 98.0 F 70 18 166/92 97 08/26/20 07:21 08/26/20 07:21 08/26/20 07:21 08/26/20 07:21 08/26/20 08:20 Plan Activity: no restrictions Diet: low salt Follow up with: [facility] [Other] - 7 Days RULA DA SILVA MD [Staff Physician] - 7 Days Prescriptions: Spironolactone [Aldactone] 25 mg PO QDAY #90 tablet hydrALAZINE [Apresoline TAB] 100 mg PO TID #180 tab Sacubitril/Valsartan [Entresto 49-51 mg] 2 each PO BID #180 tablet ISOSORBIDE MONOnitrate [Imdur ER] 30 mg PO BID #60 Potassium Chloride [K-Dur] 20 meq PO QDAY #30 tablet Furosemide [Lasix TAB] 40 mg PO QDAY #90 tablet Metoprolol [Lopressor TAB] 50 mg PO BID #60 tablet
[2020-08-26] MEDS ORDERED: FUROSEMIDE 40 MG TAB PO SCH (10:00)
[2020-08-26] MEDS: ASPIRIN EC 81 MG TAB PO SCH (10:56)
[2020-08-26] MEDS: METOPROLOL TARTRATE 50 MG TAB PO SCH (10:57)
[2020-08-26] MEDS: POTASSIUM CHLORIDE ER 20 MEQ TAB PO SCH (10:57)
[2020-08-26] MEDS: FAMOTIDINE 20 MG TAB PO SCH (10:57)
[2020-08-26] MEDS: CLOPIDOGREL 75 MG TAB PO SCH (10:57)
[2020-08-26] MEDS: SPIRONOLACTONE 25 MG TAB PO SCH (10:57)
[2020-08-26] MEDS: hydrALAZINE 100 MG TAB PO SCH (10:57)
[2020-08-26] MEDS: SACUBITRIL/VALSARTAN 49-51 MG TAB PO SCH (10:58)
[2020-08-26] MEDS: HEPARIN 5,000 UNIT/1 ML VIAL SUB-Q SCH (10:58)
== END 2020-08-26 16:30 | disposition home health service (06) | DRG 291 ==
LOC: ED 11:03 → 4A 13:10 → OBSVTOIN 08-24 15:37
PROVIDERS: ADMIT Internal Medicine; ATTEND Family Medicine
DX: I11.0 Hypertensive heart disease with heart failure (principal); J96.01 Acute respiratory failure with hypoxia; E44.1 Mild protein-calorie malnutrition; I50.43 Acute on chronic combined systolic (congestive) and diastolic (congestive) heart failure; E87.6 Hypokalemia; Z86.73 Personal history of transient ischemic attack (TIA), and cerebral infarction without residual deficits; I25.10 Atherosclerotic heart disease of native coronary artery without angina pectoris; N40.0 Benign prostatic hyperplasia without lower urinary tract symptoms; I25.2 Old myocardial infarction; J44.9 Chronic obstructive pulmonary disease, unspecified; M19.90 Unspecified osteoarthritis, unspecified site; Z79.899 Other long term (current) drug therapy; Z87.891 Personal history of nicotine dependence; K21.9 Gastro-esophageal reflux disease without esophagitis; I16.0 Hypertensive urgency; D64.9 Anemia, unspecified; Z68.23 Body mass index [BMI] 23.0-23.9, adult; I25.5 Ischemic cardiomyopathy; I27.20 Pulmonary hypertension, unspecified; E78.2 Mixed hyperlipidemia; Z95.5 Presence of coronary angioplasty implant and graft; I34.0 Nonrheumatic mitral (valve) insufficiency; Z86.79 Personal history of other diseases of the circulatory system
CPT/HCPCS: 36415; 71045; 80048; 80053; 83036; 83880; 84484; 85007; 85025; 93005; 93306; 94640; 96374; G0378; A9270-GY; J0360; J1644; J1940